=== PATIENT | female | born 1985 | race Caucasian/White ===

== ENCOUNTER 2022-09-19 18:07 | Emergency (ER) | payer BC, SELFPAY ==
[2022-09-19 18:16] VITALS: BP 131/84; PULSE 70; RESP 16; TEMP 36.2; O2SAT 99; BMI 36.9
--- NOTE | 2022-09-19 18:30 | CRLHL7_ITS ---
For Patients: As a result of the Century Cures Act, medical imaging exams and procedure reports are released immediately into your electronic medical record. You may view this report before your referring provider. If you have questions, please contact your health care provider. INDICATION: Right lower quadrant pain, history of stones. TECHNIQUE: CT abdomen and pelvis without contrast. Coronal and sagittal reformats were generated. COMPARISON: CT of the abdomen and pelvis from 08/10/2020. FINDINGS: Lower chest: Unremarkable. Liver: Decreased attenuation is compatible with steatosis. No other abnormality within limitations of lack of contrast. Gallbladder and bile ducts: Surgically absent gallbladder. Normal caliber bile ducts. Spleen: Enlarged measuring 15 cm in AP dimension. Peripherally calcified focus is stable and could be sequela of prior trauma or infection. Pancreas: Unremarkable. Adrenal glands: Unremarkable. No nodules. Kidneys and Ureters: Punctate stone in the lower pole of the right kidney measures approximately 2 mm (4/51). No left renal calculi. No hydronephrosis. Lymph Nodes and Retroperitoneum: Unremarkable. Vasculature: Unremarkable. GI tract: Unremarkable. Normal in caliber. Normal appendix. Peritoneum/Abdominal Wall: Unremarkable. No mass or infiltration. No free air or free fluid. Pelvic Viscera: Intrauterine device in the endometrial canal. Bladder: Unremarkable. Bones: Unremarkable for age. IMPRESSION: 1. Tiny right renal calculus. No hydronephrosis. 2. Normal appendix. Please note that all CT scans at this facility use dose modulation, iterative reconstruction, and/or weight-based dosing when appropriate to reduce radiation dose to as low as reasonably achievable. Dictated by Leonel Escoto MD @ 09/19/2022 7:08:54 PM (Electronically Signed)
--- NOTE | 2022-09-19 18:30 | ED.ABDPAIN ---
HPI - Abdominal Pain General Chief Complaint: Abdominal Pain Stated Complaint: Right abdominal pain (no gall bladder) Time Seen by Provider: 09/19/22 18:08 History of Present Illness HPI narrative: This 37-year-old female comes in with right upper quadrant abdominal pain over the past couple days. She states that it comes and goes but now has a constant dull ache that is minimal. Certain maneuvers or positions and occasionally a deep breath can sometimes worsen this pain. She does not report any specific injury event but states that she did fall off of a chair 3 days ago and bumped her left side into a radiator. She does also report a history of kidney stones. She does not describe any fever or dysuria symptoms. She has had her gallbladder removed years ago. Related Data Home Medications Medication Instructions Recorded Confirmed levonorgestrel 20 mcg/24 hours (8 1 intrauterine ONCE 08/11/22 08/11/22 yrs) 52 mg intrauterine device propranolol 60 mg capsule,24 mg PO DAILY 08/11/22 08/11/22 hr,extended release tizanidine 4 mg tablet 4 mg PO .PRN PRN 08/11/22 08/11/22 Previous Rx's Medication Instructions Recorded hydrochlorothiazide 25 mg tablet 50 mg PO .ud #90 tabs 06/20/22 bupropion HCl 300 mg 24 hr tablet, 300 mg PO QAM #90 tabs 07/25/22 extended release dextroamphetamine-amphetamine ER 25 mg PO QAM #30 caps 08/11/22 25 mg 24hr capsule,extend release dextroamphetamine-amphetamine ER 25 mg PO QAM #30 caps 08/11/22 25 mg 24hr capsule,extend release (Adderall XR) Allergies Allergy/AdvReac Type Severity Reaction Status Date / Time hydrocodone AdvReac Severe aggression Verified 09/19/22 16:35 hydromorphone AdvReac Severe aggression Verified 09/19/22 16:35 oxycodone AdvReac Severe aggression Verified 09/19/22 16:35 codeine AdvReac Intermediate GI upset Verified 09/19/22 16:35 Eggs or Egg-derived Products Allergy Unknown Uncoded 09/19/22 16:35 Review of Systems Status of ROS Reports: 10 or more systems reviewed and unremarkable except as noted in History and below Narrative Constitutional: No fevers, no weight gain or loss. Eyes: No discharge. No vision changes. HENT: No congestion, no sore throat, no ear pain. Cardiovascular: No chest pain, no palpitations. Respiratory: No shortness of breath, no wheezes, no cough. Gastrointestinal: No vomiting, no diarrhea. Right upper quadrant abdominal pain as described above. Genitourinary: No dysuria, no hematuria. Musculoskeletal: Normal range of motion. Skin: No rashes, no pruritis. Neurological: No dizziness, weakness, sensory change, speech change. Endo/Heme/Allergies: No bruising or bleeding. No polydipsia. Pysch: no suicidality, no anxiety, no insomnia. All other systems reviewed and are negative. [facility] Medical History (Updated 09/19/22 @ 20:28 by Camron Maddox MD) ADD (attention deficit disorder) Social History Smoking Status: Never smoker How often do you have a drink containing alcohol: never How often do you have six or more drinks on one occasion: Never AUDIT-C Alcohol total score: 0 Non-prescribed substance use: denies use Little interest or pleasure in doing things: not at all Feeling down, depressed, or hopeless: not at all service: No Exam Narrative: Exam Narrative: Constitutional: Well-developed, well-nourished, no acute distress. HEENT: Normocephalic, atraumatic. Neck: Normal range of motion. Nontender. Supple. Heart: Regular. No murmurs. Normal rate. Intact distal pulses. Lungs: Clear to auscultation. No chest discomfort. No wheezes, rhonchi, or rales. Abdomen: Normal bowel sounds. Mild tenderness in the right upper quadrant. No rebound tenderness. No flank pain. Genitalia: Deferred. Back: No midline tenderness. Normal range of motion. Extremities: Normal range of motion. No injury. Skin: Intact. No rash. Warm. No erythema or pallor. Neurologic: No altered sensation. No weakness. Alert and oriented. Psychiatric: No suicidality. No anxiety or depression. No insomnia. Nursing notes and vitals signs are reviewed. Const: Vital Signs, click to edit/add: Vital Signs - 24 hr 09/19/22 18:16 Temperature 97.1 F L Pulse Rate [Left P ulse Oximeter] 70 Respiratory Rate 16 Blood Pressure [Ri ght Upper Arm] 131/84 Pulse Oximetry 99 Oxygen Delivery Me thod Room Air Course Vital Signs Vital signs: Initial Vital Signs Temperature 97.1 F L 09/19/22 18:16 Temperature Source Temporal Artery Scan 09/19/22 18:16 Pulse Rate 70 09/19/22 18:16 Pulse Rhythm 09/19/22 18:16 Pulse Strength 3+ Normal 09/19/22 18:16 Respiratory Rate 16 09/19/22 18:16 Blood Pressure 131/84 09/19/22 18:16 Blood Pressure Mean 99 09/19/22 18:16 Blood Pressure Position Sitting 09/19/22 18:16 Pulse Oximetry 99 09/19/22 18:16 Oxygen Delivery Method 09/19/22 18:16 Vital Signs Temperature 97.1 F L 09/19/22 18:16 Pulse Rate 70 09/19/22 18:16 Respiratory Rate 16 09/19/22 18:16 Blood Pressure 131/84 09/19/22 18:16 Pulse Oximetry 99 09/19/22 18:16 Oxygen Delivery Method 09/19/22 18:16 Temperature 97.1 F L 09/19/22 18:16 Pulse Rate 70 09/19/22 18:16 Respiratory Rate 16 09/19/22 18:16 Blood Pressure 131/84 09/19/22 18:16 Pulse Oximetry 99 09/19/22 18:16 Oxygen Delivery Method 09/19/22 18:16 MDM - Abdominal Pain MDM Narrative Medical decision making narrative: This patient comes in with right-sided abdominal pain for the past few days. She does have a history of kidney stones but states this [address] scan of the abdomen and pelvis is acquired which does show evidence of a small stone in the pole of the kidney but no sign of obstructive stone, hydroureter, or hydronephrosis. Additionally her urinalysis returns with normal results and no evidence of hematuria. The patient did fall a couple days ago and landed on her left side but in doing so she did stretch the musculature on the right side of her abdomen and chest wall. This may be a trigger for her symptoms. In any event she is not showing any signs of that are worrisome and is okay to return home. She is reassured with these results and plans to use [id number] medicines as needed and directed. Lab Data Labs: Lab Results 09/19/22 Range/Units 19:20 Urine Color Yellow (Yellow) Urine Appearance Clear (Clear) Urine pH 6.0 (5.0-8.5) Ur Specific [place] 1.015 (1.000-1.030) Urine Protein Negative (Negative) Urine Glucose (UA) Negative (Negative) Urine Ketones Negative (Negative) Urine Blood Negative (Negative) Urine Nitrite Negative (Negative) Urine Bilirubin Negative (Negative) Urine Urobilinogen 0.2 (0.2-1.0) Ur Leukocyte Esterase Negative (Negative) Urine RBC 0-2 (0-2) Urine WBC 0-2 (0-5) Ur Squamous Epith Cells Few (None-Few) Urine Bacteria Few A (None) Imaging Data CT scan - abdomen: Radiologist's impression: 1. Tiny right renal calculus. No hydronephrosis. 2. Normal appendix. Discharge Plan Discharge Clinical Impression: Acute chest wall pain Patient Disposition: Home, Self-Care Condition: Stable Additional Instructions: Take [id number] medication as needed and indicated. Follow up with MD or return if worsening. Prescriptions: No Action levonorgestrel 20 mcg/24 hours (7 yrs) 52 mg intrauterine device 1 intrauterine ONCE propranolol 60 mg capsule,extended release 24 hr PO DAILY tizanidine 4 mg tablet 4 mg PO .PRN PRN dextroamphetamine-amphetamine [Adderall XR] 25 mg capsule,extended release 24hr 25 mg PO QAM Qty: 30 0RF dextroamphetamine-amphetamine 25 mg capsule,extended release 24hr 25 mg PO QAM Qty: 30 0RF hydrochlorothiazide 25 mg tablet 50 mg PO .ud Qty: 90 1RF Rx Instructions: Alternate 1 tab and 2 tabs every other day. bupropion HCl 300 mg tablet extended release 24 hr 300 mg PO QAM Qty: 90 1RF Follow Up/Referrals: Ashu Bush MD [Primary Care Provider] - Stand Alone Forms: Videdressing Info Instructions
--- OUTSIDE RECORDS SUMMARY | 2022-09-19 18:59 | XMS_ITS | Clinical Summary ---
:1985 Author Organization [facility] [place] [address] Care Team Providers Name Role Phone Ashu Bush MD Primary Care Provider Allergies Active Allergy Reactions Severity Noted Date Comments Codeine Stomach Upset, Vomiting 03/18/2009 All T3s Egg Derived *Unknown 08/23/2014 Oxycodone Rash 11/22/2017 Medications Medication Sig Dispensed Refills Start Date End Date Status Take 1 tablet by 0 12/03/2015 Ac tive vitamin-folic acid 1 mouth once daily. mg ( VITAMIN) tablet/capsule albuterol HFA 90 Inhale 2 Puffs by 0 10/10/2017 Active mcg/actuation inhaler mouth. cyclobenzaprine Take 1 tablet by 30 tablet 0 09/23/2018 Active (FLEXERIL) 10 mg mouth 2 times daily tabletIndications: if needed for Numbness and tingling Muscle Spasm. in right hand, Cervicalgia camphor-menthol Apply topically to 1 jar 0 09/23/2018 Active (TIGER BALM) 11-11 % affected area(s). ointIndications: White ointment or Numbness and tingling sports rub, up to in right hand, 5x/day as needed Cervicalgia then warm compress over. omeprazole (PRILOSEC) Take 20 mg by mouth 0 Active 20 mg Delayed-Release once daily before a capsuleIndications: meal. 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 Max tabletIndications: acetaminophen dose: S/P section 4000mg in 24 hrs. ferrous sulfate, 65 Take 1 tablet by 60 tablet 0 04/19/2020 Active mg elemental, mouth 2 times daily tabletIndications: with meals. Acute blood loss anemia Breast Pump - Electric breast 1 Device 0 04/19/2020 Active PurchaseIndications: pump for home use. S/P section Gestation age at delivery: 37 weeks. Reason for need: Desires . Length of need: 12 months ibuprofen (ADVIL; Take 1 tablet by 40 tablet 0 04/20/2020 Active MOTRIN) 600 mg mouth every 6 tabletIndications: hours. Maximum of S/P section 3200 mg in 24 hours. sennosides-docusate, Take 1 tablet by 60 tablet 1 04/20/2020 Active 8.6-50 mg, (SENOKOT mouth 2 times S) 8.6-50 mg daily. tabletIndications: S/P section ferrous sulfate, 65 Take 1 tablet by 60 tablet 1 04/20/2020 Active mg elemental, mouth once daily tabletIndications: with a meal. S/P section, Acute blood loss anemia NIFEdipine (PROCARDIA Take 1 tablet by 30 tablet 1 04/21/2020 Active XL) 30 mg mouth once daily Extended-Release before a meal. tabletIndications: S/P section, Preeclampsia, severe, third trimester Active Problems Problem Noted Date S/P section 11/25/2017 Preeclampsia, severe, third trimester 11/24/2017 36 weeks gestation of 11/24/2017 Respiratory infection, upper 10/22/2017 Female infertility 08/30/2016 Obesity, Class II, BMI 35-39.9 08/30/2016 Hyperlipidemia, unspecified 08/30/2016 Melanoma Overview: left arm, age 25, 2 lesions Immunizations Name Administration Dates Next Due Tdap 10/04/2017, 09/27/2015 Family History Medical History Relation Name Comments Cancer Father basal cell Hypertension Father Diabetes Maternal Grandfather Diabetes Mother Hypertension Mother Cancer-breast Other either paternal aunt or grandmother Cancer Paternal Grandfather ? origin, h ad mets to lungs Cancer-colon No Family History Cancer-ovarian No Family History Relation Name Status Comments Father Maternal Grandfather Mother Other Paternal Grandfather Social History Tobacco Use Types Packs/Day Years Used Date Never Smoker Smokeless Tobacco: Never Used Tobacco Cessation: Counseling Given: Yes Alcohol Use Standard Drinks/Week Comments No 0 (1 standard drink = 0.6 oz pure alcoho l) Sex Assigned at Date Recorded Not on file Obstetrics History Para Term AB IAB SAB Ectopic Multiple Living Live Births 2 2 1 1 0 0 0 0 0 1 1 Date Outcome GA Total Labor/2nd/3rd Weight Sex Delivery Anes PTL Mirian A 1 A5 Name Clin Labor 11/25 36w 3.11 kg F Epidu Maria E 8 3d (6 lb ral ng 13.7 oz) Complications: Failure to Progress in Fi rst Stage 04/18/2020 Term 37w0d 0h 3.29 F CS-LTranv Spinal [address] 03m kg (7 Gary blet lb 4 oz) Delivery Location: [facility]) Last Filed Vital Signs Vital Sign Reading Time Taken Comments Blood Pressure 132/72 04/21/2020 8:30 AM CDT Pulse 97 04/21/2020 8:30 AM CDT Temperature 36.7 ??C (98.1 ??F) 04/21/2020 7:35 AM CDT Respiratory Rate 18 04/21/2020 7:35 AM CDT Oxygen Saturation 98% 04/19/2020 11:20 PM CDT Inhaled Oxygen Concentration - - Weight 118.3 kg (260 lb 11.2 oz) 04/21/2020 2:00 AM CDT Height 172.7 cm (5' 8) 04/18/2020 7:42 PM CDT Body Mass Index 39.64 04/18/2020 7:42 PM CDT Plan of Treatment Health Maintenance Due Date Last Done Comments COVID-19 vaccine series (#1) 1985 BMI (ht and wt on same day) for 09/23/2019 09/23/2018, 08/27, age 18+ 04/17/2017, Additional history exists Depression screening for age 12+ 10/04/2019 10/04/2018, , 09/23/2018, Additional history exists Pap test for age 21-65 09/30/2022 09/30/2019, 09/30/2019, 09/03/2015 (Completed outside of [facility]) Tetanus booster 10/04/2027 10/04/2017, 09/27/2015 Tdap Completed 10/04/2017, 09/27/2015 Hepatitis C screening for age Completed 02/14/2020 18-79 Results Not on filefrom Last 3 Months Insurance Payer Benefit Plan / Subscriber ID Effective Dates Phone Addre ss Type Group WC WORKERS COMP WC OWCP [id number] 2020-Presen [address] [place] [address] [employer] [place] [id number] 2018-Present [address] [id number] [place] [address] [place] [id number] 2014-[place] [address] [id number] [place] [address] [employer] Personal/Family Self 1985 [address] [facility] [phone] [place] ([place] [id number] [employer] Workers Comp Self 1985 [address] [facility] [phone] [place] (Work) [id number] [employer] Workers Comp Self 1985 [address] [facility] [phone] [place] ([place]) [id number] Advance Directives Latest Code Status on File Code Status Date Activated Date Inactivated Comments Full Code 04/18/2020 7:53 PM 04/21/2020 12:37 PM Code Status Discussion: Discussed Full Code 03/29/2020 2:20 PM 03/29/2020 6:29 PM Full Code 11/25/2017 6:03 PM 11/29/2017 7:49 PM Code Status Discussion: Not Discussed Full Code 11/25/2017 4:41 PM 11/25/2017 6:03 PM Code Status Discussion: Not Discussed Full Code 11/25/2017 1:35 PM 11/25/2017 4:33 PM Code Status Discussion: Not Discussed Care Teams Auto Travel Counselor Relationship Specialty Start Date End Date Ashu Bush MD PCP - General Family Practice 01/09/[address] [place] [id number]
[2022-09-19 19:29] LABS: Appearance Urine Clear (Clear); Bilirubin Urine Negative (Negative); Blood Urine Negative (Negative); Color Urine Yellow (Yellow); Glucose Urine Negative (Negative); Ketones Urine Negative (Negative); Leukocyte Esterase Urine Negative (Negative); Nitrite Urine Negative (Negative); Protein Urine Negative (Negative); Specific Gravity Urine 1.015 (1.000-1.030); Urobilinogen Urine 0.2 (0.2-1.0)
[2022-09-19 20:06] LABS: Bacteria Urine Few; RBC Urine 0-2 (0-2); Squamous Epithelial Cell Urine Few (None-Few); WBC Urine 0-2 (0-5)
== END 2022-09-19 20:37 | disposition home or self-care (01) ==
PROVIDERS: Emergency Provider Emergency Medicine Emergency Medical Services; PCP Family Medicine
DX: R07.89 Other chest pain (principal)
CPT/HCPCS: 74176; 81001; 87086; 99284

== ENCOUNTER 2022-11-06 15:42 | Outpatient (CLI) | payer BC, SELFPAY ==
[2022-11-06 17:21] LABS: Chloride* 100 mmol/L (96-114)
[2022-11-06 17:22] LABS: Potassium* 3.8 mmol/L (3.6-5.1); Sodium* 139 mmol/L (135-149)
[2022-11-06 17:24] LABS: Cholesterol* 277 mg/dL (90-199); Creatinine* 0.6 mg/dL (0.5-1.5); Estimated Glomerular Filt Rate 118 ml/min
[2022-11-06 17:25] LABS: Blood Urea Nitrogen* 15 mg/dL (5-24); Calcium* 9.7 mg/dL (8.4-10.6); Carbon Dioxide* 29 mmol/L (20-32); Glucose* 101 mg/dL (60-115); Triglycerides* 169 mg/dL (40-149)
[2022-11-06 17:26] LABS: HDL Cholesterol* 44 mg/dL (>=50); LDL Cholesterol Calculated 199 mg/dL (<100)
== END 2022-11-06 15:43 | disposition home or self-care (01) ==
LOC: LONREF 15:43
PROVIDERS: PCP Family Medicine; Visit Provider Family Medicine
DX: E78.00 Pure hypercholesterolemia, unspecified (principal); I10 Essential (primary) hypertension
CPT/HCPCS: 80048; 80061

== ENCOUNTER 2023-01-25 10:33 | Emergency (ER) | payer BC, SELFPAY ==
[2023-01-25 10:52] VITALS: BP 139/90; PULSE 86; RESP 20; TEMP 36.2; O2SAT 98; BMI 39.5
--- NOTE | 2023-01-25 12:07 | ED_ITS ---
HPI - General Adult General Chief complaint: Headache/Migraine Stated complaint: high bp, headache Time Seen by Provider: 01/25/23 11:07 History of Present Illness HPI narrative: This 37-year-old female comes in stating that her blood pressure is elevated and is causing her to have a headache. She is taking antihypertensive meds and arrives with a blood pressure at 139/90. At the time of my visit her blood pressure was 131/85. She states that she feels fine. She attempted to get in to her primary physician but was unable to do so so she came here hoping to better manage her blood pressure. Related Data Home Medications Medication Instructions Recorded Confirmed levonorgestrel 21 mcg/24 hours (8 1 intrauterine ONCE 08/11/22 08/11/22 yrs) 52 mg intrauterine device propranolol 60 mg capsule,24 mg PO DAILY 08/11/22 08/11/22 hr,extended release tizanidine 4 mg tablet 4 mg PO .PRN PRN 08/11/22 08/11/22 Previous Rx's Medication Instructions Recorded bupropion HCl 300 mg 24 hr tablet, 300 mg PO QAM #90 tabs 07/25/22 extended release hydrochlorothiazide 25 mg tablet 50 mg PO .ud #135 tabs 10/26/22 rosuvastatin 10 mg tablet 10 mg PO QDAY #90 tabs 11/23/22 dextroamphetamine-amphetamine ER 25 mg PO QAM #30 caps 11/25/22 25 mg 24hr capsule,extend release dextroamphetamine-amphetamine ER 25 mg PO QAM #30 caps 11/25/22 25 mg 24hr capsule,extend release (Adderall XR) dextroamphetamine-amphetamine ER 25 mg PO QAM #30 caps 12/28/22 25 mg 24hr capsule,extend release (Adderall XR) Allergies Allergy/AdvReac Type Severity Reaction Status Date / Time hydrocodone AdvReac Severe aggression Verified 01/25/23 10:52 hydromorphone AdvReac Severe aggression Verified 01/25/23 10:52 oxycodone AdvReac Severe aggression Verified 01/25/23 10:52 codeine AdvReac Intermediate GI upset Verified 01/25/23 10:52 Eggs or Egg-derived Products Allergy Unknown Uncoded 09/19/22 16:35 Review of Systems Status of ROS: Reports: 10 or more systems reviewed and unremarkable except as noted in History and below Narrative: Constitutional: No fevers, no weight gain or loss. Eyes: No discharge. No vision changes. HENT: No congestion, no sore throat, no ear pain. Cardiovascular: No chest pain, no palpitations. Respiratory: No shortness of breath, no wheezes, no cough. Gastrointestinal: No abdominal pain, no vomiting, no diarrhea. Genitourinary: No dysuria, no hematuria. Musculoskeletal: Normal range of motion. Skin: No rashes, no pruritis. Neurological: No dizziness, weakness, sensory change, speech change. Endo/Heme/Allergies: No bruising or bleeding. No polydipsia. Pysch: no suicidality, no anxiety, no insomnia. All other systems reviewed and are negative. [facility] Medical History (Updated 01/25/23 @ 12:12 by Camron Maddox MD) ADD (attention deficit disorder) Social History Smoking Status: Never smoker How often do you have a drink containing alcohol: never How often do you have six or more drinks on one occasion: Never AUDIT-C Alcohol total score: 0 Non-prescribed substance use: denies use Little interest or pleasure in doing things: not at all Feeling down, depressed, or hopeless: not at all service: No Exam Narrative: Exam Narrative: Constitutional: Well-developed, well-nourished, no acute distress. HEENT: Normocephalic, atraumatic. Neck: Normal range of motion. Nontender. Supple. Heart: Intact distal pulses. Lungs: No chest discomfort. No wheezes, rhonchi, or rales. Abdomen: Nontender. Back: Normal range of motion. Extremities: Normal range of motion. No injury. Skin: Intact. No rash. Warm. No erythema or pallor. Neurologic: No altered sensation. No weakness. Alert and oriented. Psychiatric: No suicidality. No anxiety or depression. No insomnia. Nursing notes and vitals signs are reviewed. Const: Vital Signs, click to edit/add: Vital Signs - 24 hr 01/25/23 10:52 Temperature 97.2 F L Pulse Rate [Pulse Oximeter] 86 Respiratory Rate 20 Blood Pressure [Ri ght Upper Arm] 139/90 H Pulse Oximetry 98 Oxygen Delivery Me thod Room Air Course Vital Signs Vital signs: Initial Vital Signs Temperature 97.2 F L 01/25/23 10:52 Temperature Source Temporal Artery Scan 01/25/23 10:52 Pulse Rate 86 01/25/23 10:52 Pulse Rhythm 01/25/23 10:52 Respiratory Rate 20 01/25/23 10:52 Blood Pressure 139/90 H 01/25/23 10:52 Blood Pressure Mean 106 01/25/23 10:52 Blood Pressure Position Sitting 01/25/23 10:52 Pulse Oximetry 98 01/25/23 10:52 Oxygen Delivery Method 01/25/23 10:52 Vital Signs Temperature 97.2 F L 01/25/23 10:52 Pulse Rate 86 01/25/23 10:52 Respiratory Rate 20 01/25/23 10:52 Blood Pressure 139/90 H 01/25/23 10:52 Pulse Oximetry 98 01/25/23 10:52 Oxygen Delivery Method 01/25/23 10:52 Temperature 97.2 F L 01/25/23 10:52 Pulse Rate 86 01/25/23 10:52 Respiratory Rate 20 01/25/23 10:52 Blood Pressure 139/90 H 01/25/23 10:52 Pulse Oximetry 98 01/25/23 10:52 Oxygen Delivery Method 01/25/23 10:52 Medical Decision Making MDM Narrative Medical decision making narrative: This patient comes in stating that her elevated blood pressure causes her to have a headache. She states that every time she feels a headache she checks her blood pressure and it is elevated. I pointed out that it is actually the headache that is causing the increased blood pressure rather than the blood pressure causing her headache. She was not willing to except this perspective. She grew rather frustrated and wanted to leave. I stated that it is not worth arguing over this issue and asked her how I could help her. She wanted better management of her blood pressure. Her blood pressure currently is in the normal range at 131/85. I stated that we do not typically manage blood pressure out of the emergency department unless it is elevated significantly and not returning to a lower level over time or if a person is having neurologic symptoms typical of a hypertensive emergency. She continued to be dissatisfied with this perspective. She did agree to a oral dose of clonidine 0.1 mg. This should not bring her blood pressure too low and 1 dose should not have a rebound effect. I advised her to follow-up with her primary physician for ongoing management of Discharge Plan Discharge Clinical Impression: Hypertension Patient Disposition: Home, Self-Care Condition: Stable Additional Instructions: Continue current plans. Follow up with primary physician for ongoing management of blood pressure. It is helpful to bring in recorded blood pressure readings to assist in this process. Prescriptions: No Action levonorgestrel 20 mcg/24 hours (7 yrs) 52 mg intrauterine device 1 intrauterine ONCE propranolol 60 mg capsule,extended release 24 hr PO DAILY tizanidine 4 mg tablet 4 mg PO .PRN PRN bupropion HCl 300 mg tablet extended release 24 hr 300 mg PO QAM Qty: 90 1RF hydrochlorothiazide 25 mg tablet 50 mg PO .ud Qty: 135 1RF Rx Instructions: Alternate 1 tab and 2 tabs every other day. rosuvastatin 10 mg tablet 10 mg PO QDAY Qty: 90 1RF dextroamphetamine-amphetamine [Adderall XR] 25 mg capsule,extended release 24hr 25 mg PO QAM Qty: 30 0RF Rx Instructions: fill date 01/23/23 dextroamphetamine-amphetamine 25 mg capsule,extended release 24hr 25 mg PO QAM Qty: 30 0RF dextroamphetamine-amphetamine [Adderall XR] 25 mg capsule,extended release 24hr 25 mg PO QAM Qty: 30 0RF Follow Up/Referrals: Ashu Bush MD [Primary Care Provider] - Stand Alone Forms: Corpora Info Instructions
--- NOTE | 2023-01-25 12:22 | ED.NURSE ---
Pt declines ordered med. Pharmacy notified. Pt declines signing discharge signature page, but does leave ED with paperwork in hand.
[2023-01-25 12:24] VITALS: BP 139/90; PULSE 86; RESP 20; TEMP 36.2
== END 2023-01-25 12:24 | disposition home or self-care (01) ==
PROVIDERS: Emergency Provider Emergency Medicine Emergency Medical Services; PCP Family Medicine
DX: I10 Essential (primary) hypertension (principal)
CPT/HCPCS: 99283; 99284

== ENCOUNTER 2023-03-10 09:33 | Outpatient (CLI) | payer BC, SELFPAY | END 2023-03-10 09:34 | disposition home or self-care (01) | LOC: NFLDREF 03-11 05:34 | PROVIDERS: PCP Family Medicine; Referring Provider Family Medicine; Visit Provider Family Medicine | DX: E78.00 Pure hypercholesterolemia, unspecified (principal); E87.6 Hypokalemia; I10 Essential (primary) hypertension | CPT/HCPCS: 80053; 80061; 82670; 83001; 83615; 84144 ==

== ENCOUNTER 2023-06-08 15:01 | Outpatient (CLI) | payer BC, SELFPAY | END 2023-06-08 15:02 | disposition home or self-care (01) | PROVIDERS: PCP Family Medicine; Visit Provider Family Medicine | DX: E66.9 Obesity, unspecified (principal); E78.00 Pure hypercholesterolemia, unspecified; E87.6 Hypokalemia; I10 Essential (primary) hypertension; F98.8 Other specified behavioral and emotional disorders with onset usually occurring in childhood and adolescence | CPT/HCPCS: 80053; 84443 ==

== ENCOUNTER 2024-02-29 19:43 | Outpatient (CLI) | payer BC, SELFPAY ==
--- OUTSIDE RECORDS SUMMARY | 2024-02-29 19:46 | XMS_ITS | Data Portability ---
Author Name Unknown Address [address] [place] [address] Phone [phone] Organization [facility], [facility] Address [address] [place] [address] Assessment No assessment recorded. Plan of Treatment Reminders Order Date Submit Date Provider Last Modified By Organization Details Last Modified Time Details Appointments None recorded. Lab None recorded. Referral None recorded. Procedures None recorded. Surgeries ureterosco py with stone basket extraction , holmium laser fragmentat ion (SURG) 2019 020 [email or web address] Not available 0 14:04:25 Imaging None recorded. Medication Orders oxybutynin chloride 5 mg tablet 2019 020 INTERFACE [facility] [address] [place] [address], [id number], 0 10:26:03 Patient TargetsNo targets recorded. Patient InstructionsNo instructions recorded. Reason for Referral None Reported. Results Created Date Observation Date Name Description Value Unit Range Abnormal Flag LastModifiedBy Organization Detail LastModifiedTime 06/30/20 20 06/22/2020 CT, abdom en, w/ contr ast No observ ation record ed. [email or web address] Not Available 07/01/2020 08:53:50 Result Notes None recorded. Procedures Surgical History Date Name Laterality Status Provider Name and Address Organization Details Recorded Time Cholecystectomy completed Jamilah ruth [facility] 06/30/2020 09:55:32 removal of ovarian cyst completed Jamilah ruth [facility] 06/30/2020 09:55:49 Imaging Results Imaging Date Name Status LastModified by Organiz ation Details LastModified Time 06/22/2020 CT, abdomen, w/ contrast completed bigg Information not available 07/01/2020 08:53:50 Procedure Notes None recorded. Medical Equipment None Reported. Allergies Allergen ID Allergen Name Allergen Category Reaction Reaction Severity Criticality Documentation Date Start Date Code Code System Note Provider Name and Address Organization Details Recorded Time 729910 codeine medicatio n rash Not available Not available 06/30/2020 2670 RxNorm Jamilah RamachandranKARINA kirkland [facility] 0 09:53:45 Medications Name Sig Start Date Stop Date Status Note LastModified by Organization Details LastModified Time oxybutynin chloride 5 mg tablet Take 1 tablet twice a day by oral route. 020 active Not Available Not Available Not Avai lable Keflex active Not Available Not Availa ble Not Available Vitals Date Recorded Body height Body mass index (BMI) Body weight Provider Name and Address Organization Details Last Updated DateTime 06/30/2020 173.99 cm 36.7 kg/m2 012511.13 g Jamilah RamachandranKARINA kirkland [facility] 06/30/2020 09:52:56 Social History Question Answer Notes LastModified by Organizat ion Details LastModified Time Tobacco Smoking Status Never Smoker Jamilah RamachandranKARINA kirkland [facility] 06/30/2020 09:55:10 Do You Or Have You Ever Used E-cigarettes Or Vape? Never Used Electronic Cigarettes [email or web address] Information not available 06/30/2020 Sex: Female Functional Status None recorded. Mental Status None recorded. Family History Relationship Description Onset Age of this Age Resolved Age Notes Maternal Grandmother Family history of cancer Medical History Condition Response Diabetes N Sexually Transmitted Infection N Bleeding Disorder N High Blood Pressure Y Kidney Stones Y Cancer Y Lung Disease N Depression N High Cholesterol Y GERD/Acid Reflux N Heart Disease N Gynecological HistoryNo gynecological history recorded. Obstetrics History GPAL:G 0 P 0 0 0 0 Past Encounters Encounter ID Performer Location Encounter Start Date Encounter Closed Date Diagnosis/Indication Diagnosis SNOMED-CT Code [id number] Oneal Catalan MD [facility] [address] [place] [id number] 06/30/2020 09:46:53 06/30/2020 11:53:58 Ureteric stone 64599022 Health Concerns Section Related Observation LastModified by Organization Detai ls LastModified Time None Recorded Concern Status LastModified by Organization Details LastModified Time None Recorded Advance Directives Directive None Recorded Payers Encounter Date Sequence Insurance Name Policy Number Policy Guerrero Covered Member ID Guerrero Member ID Guarantor Name 06/30/2020 1 [id number] Gaviota Gill [id number] Gaviota Gill Notes Date Note Type Note Provider Name and Address Organization Details Recorded Time 06/30/2020 text/html HPI Notes: Sen a t the ER ([facility]) last week for flank pain now with urgency/no dysuria/ frequency/no gross hematuria. CT showed left proximal stone 4 by 6 mm with hydro 07/22/20. Last night she started keflex for OAB but no gross hematuria, no pain with urination. NO fevers. This visit was conducted by telephone due to the COVID-19 crisis. Prior to conducting our telephone visit, the patient was apprised of the risks, benefits and alternatives to telephone visits including but not limited to poor audio quality, interrupted visits due to technological limitations, delays in medical evaluation and treatment due to deficiencies or failures of equipment, failure of security protocols resulting in a breach of privacy of personal medical information and a lack of access to complete medical records resulting in not fully informed decisions. Also, because of the COVID-19 pandemic, it was not possible for the patient to sign the privacy regulations, HIPAA release and assignment of benefits forms. The patient was given the opportunity to ask questions about these policies and gave verbal acknowledgement and approval of these policies as well as to hold this meeting by telephone. Lastly, the patient agreed to allowing their medication history to be pulled from a national pharmacy database to facilitate and coordinate their care. Oneal Catalan MD [address] [place] [address],[address], [place], [address], [facility] 06/30/2020 10:42:44 OBGyn Episode No OBEpisode recorded.
--- OUTSIDE RECORDS SUMMARY | 2024-02-29 19:47 | XMS_ITS | Clinical Summary ---
Author Name Unknown Organization [facility] Address [place], [place] [address] Care Team Providers Care Profile Shaper Operator Name Role Phone Ashu Bush MD Primary Care Provider [phone] Allergies Active Allergy Reactions Criticality Noted Date Comments Codeine Stomach Upset,Vomiting,Hematemesis 0 04/09/2008 All T3s Egg Derived *Unknown 08/23/2014 Oxycodone Rash 11/22/2017 Medications Medication Sig Dispensed Refills Start Date End Date Status buPROPion (WELLBUTRIN XL) 300 mg Extended-Release tablet TAKE 1 TABLET (300MG) BY MOUTH DAILY IN THE MORNING 07/25/2022 Active dextroamphetamine-amph etamine (ADDERALL XR) 25 mg Extended-Release capsule Take 25 mg by mouth. 09/25/2022 Active hydroCHLOROthiazide (HCTZ) 25 mg tablet ALTERNATE TAKING ONE TABLET BY MOUTH DAILY AND TWO TABLETS DAILY EVERY OTHER DAY 08/14/2022 Active propranolol ER (INDERAL LA) 60 mg Cs24 Sustained-Release capsule Take 60 mg by mouth once daily. 07/17/2022 Active amLODIPine (NORVASC) 2.5 mg tablet Take 2.5 mg by mouth once daily. 02/06/2023 Active guanFACINE (TENEX) 1 mg tablet Take 1 mg by mouth at bedtime. 02/01/2023 Active potassium chloride (KLOR-CON M20) 20 mEq Extended-Release tablet Take 20 mEq by mouth. 02/01/2023 Active rosuvastatin (CRESTOR) 10 mg tablet Take 10 mg by mouth once daily. 11/23/2022 Active ondansetron (ZOFRAN ODT) 4 mg disintegrating tabletIndications:Cristian ea Place 1 Tablet (4 mg) on the tongue every 8 hours if needed for Nausea/Vomiting. 15 Tablet 02/20/2023 Active Active Problems Problem Noted Date Diagnosed Date S/P section 11/25/2017 Preeclampsia, severe, third trimester 11/24/2017 36 weeks gestation of 11/24/2017 Respiratory infection, upper 10/22/2017 Female infertility 08/30/2016 Obesity, Class II, BMI 35-39.9 08/30/2016 Hyperlipidemia, unspecified 08/30/2016 Melanoma Overview: left arm, age 25, 2 lesions Immunizations Name Administration Dates Next Due Tdap 10/04/2017,09/27/2015 Family History Medical History Relation Name Comments Cancer Father basal cell Hypertension Father Diabetes Maternal Grandfather Diabetes Mother Hypertension Mother Cancer-breast Other either paterna l aunt or grandmother Cancer Paternal Grandfather ? origi n, had mets to lungs Cancer-colon No Family History Cancer-ovarian No Family History Relation Name Status Comments Father Maternal Grandfather Mother Other Paternal Grandfather Social History Tobacco Use Types Packs/Day Years Used Date Smoking Tobacco: Never Smokeless Tobacco: Never Tobacco Cessation:Counseling Given: Yes Alcohol Use Standard Drinks/Week Comments No 0 (1 standard drink = 0.6 oz pur e alcohol) PHQ-2 Answer Date Recorded PHQ-2 Score 0 01/28/2019 Sex and Gender Information Value Date Recorded Sex Assigned at Not on file Gender Identity Not on file Sexual Orientation Not on file Obstetrics History Para Term AB IAB SAB Ectopic Multiple Livin g Live Births 2 2 1 1 0 0 0 0 0 1 1 Date Outcome GA Total Labor Labor/2nd/3rd Weight Sex Delivery Anes PTL Mirian A1 A5 Name Cl in 11/25 36w 3d 3.11 kg (6 lb 13.7 oz) F Epidu ral Maria E ng 8 9 Complications:Failure to Pro kaylin in First Stage 04/18 Term 37w 0d 0h 03m 3.29 kg (7 lb 4 oz) F CS-LTranv Spina l 8 9 AGRIM SON,B GWHIT KARENA Dr. Bramb let Delivery Location:[facility] Last Filed Vital Signs Vital Sign Reading Time Taken Comments Blood Pressure 125/85 02/20/2023 10:45 AM CDT Pulse 84 02/20/2023 10:45 AM CDT Temperature 36.2 ??C (97.2 ??F) 02/20/2023 10:45 AM C DT Respiratory Rate 14 02/20/2023 10:45 AM CDT Oxygen Saturation 98% 02/20/2023 10:45 AM CDT Inhaled Oxygen Concentration - - Weight 117.9 kg (260 lb) 02/20/2023 10:45 AM CDT Height 174 cm (5' 8.5) 02/20/2023 10:45 AM CDT Body Mass Index 38.96 02/20/2023 10:45 AM CDT Plan of Treatment Health Maintenance Due Date Last Done Comments HIV for age 15-65 1999 BMI (ht and wt on same day) for age 18+ 09/23/2019 09/23/2018, 09/23/2018, 04/17/2017, Additional history exists Depression screening for age 12+ 10/04/2019 10/04/2018, 09/23/2018, 09/23/2018, Additional history exists Pap test for age 21-65 09/30/2022 , 09/30/2019, 09/03/2015 ([facility] COVID-19 vaccine series (2022- season) 2023 03/02/2021 Tetanus booster 10/04/2027 10/04/2017, 09/27/2015 Tdap Completed 10/04/2017, 09/27/2015 Hepatitis C screening for age 18-79 Completed 02/14/2020 Pneumococcal series for age 6-64 Aged Out No longer eligible based on patient's age to complete this topic Procedures Procedure Name Priority Date/Time Associated Diagnosis Comments ANTI HCV MARY ELLEN 02/14/2020 2:02 PM CDT [employer] PROGRAM ASSOCIATE THIN PREP PAP SCREEN IMAGED Routine 09/30/2019 9:00 AM TRUCK ENGINE TECHNICIAN from Last 3 Months or Most Recently Relevant to Health Maintenance Results * ANTI HCV (02/14/2020 2:02 PM CDT) [facility] HEPATITIS C ANTIBODY Non-React cyrus Non-React cyrus 02/15/2020 1:08 PM CDT [facility] Comment:Antibodies to HCV no t detected; does not exclude the possibility of exposure to HCV. Blood BLOOD SPECIMEN / Unknown Extra Tube / Unknown 02/14/2020 2:02 PM CDT 02/14/2020 2:59 PM CDT Chrissie Triplett MD SEND OUTS [facility] [address] [place] [address], * (ABNORMAL) [employer] PROGRAM ASSOCIATE THIN PREP PAP SCREEN IMAGED (09/30/2019 9:00 AM TRUCK ENGINE TECHNICIAN) [facility] Case Report Gynecologic Cytology Report ? Case: [id number] ? Authorizing Provider: ??Ethel Black PA-C ?Collected: ? 09/30/2019 0900 ? Ordering Location: ? [facility] ?Received: ?10/02/2019 1224 ? First Screen: ?[place] ? Pathologist: ? Isamar Atkins, ? Specimen: ?[employer] PRO[employer] ASSOCIATE ThinPrep Vial Screening, Cervical/Vaginal ? 10/15/2019 9:07 AM [facility] INTERPRETATION/ RESULT ATYPICAL SQUAMOUS CELLS OF UNDETERMINED SIGNIFICANCE (ASCUS)(A) (none) 10/15/2019 9:07 AM [facility] NISM(S) Fungal organisms morphologically consistent with Estefania species 10/15/2019 9:07 AM [facility] SPECIMEN ADEQUACY Satisfactory for evaluation No endocervical component seen 10/15/2019 9:07 AM [facility] LAB[facility]AT[facility] HPV REQUEST HPV and PAP 10/15/2019 9:07 AM [facility] Date of LMP 08/03/2019 10/15/2019 9:07 AM [facility] Last Pap Date 10/15/2019 9:07 AM [facility] Comment:unsure Abnormal Pap or Dunlo Bx in last 5 years 10/15/2019 9:07 AM [facility] Comment:2010; neg Menstrual Status 10/15/2019 9:07 AM [facility] Automated Review Successful 10/15/2019 9:07 AM [facility] Comment:Specimen processed s uccessfully by automated boring machine operator device, ThinPrep Imaging System, [employer] ANCILLARY TESTING [employer] PROGRAM [employer]OCIATE HPV Ordered, Please see separate report 10/15/2019 9:07 AM [facility] Note The pap test is a screening technique, not a diagnostic procedure. ??It is used primarily to screen for squamous cancers and precursor lesions. ??Published studies have shown that it is subject to both false negative and false positive results. ??The pap test should not be used as the sole means to diagnose or exclude pre-malignant and malignant lesions. Cytology is screened and interpreted at [facility] - [address], [place] [address] and [facility] - [address]; [place] [address] and [facility] - [address]; [place] [address] and [facility] [address]; [place] [address] 10/15/2019 9:07 AM TRUCK ENGINE TECHNICIAN [facility] ENTRAL LABORATORY Other (Cervical/Vagina l) 09/30/2019 9:00 AM TRUCK ENGINE TECHNICIAN 10/02/2019 12:24 PM TRUCK ENGINE TECHNICIAN February Sofia BRADFORD PATHOLOGY/CYTOLOGY [facility] [address] [place] [address], [place] from Last 3 Months or Most Recently Relevant to Health Maintenance Advance Directives * Full Code (Latest Code Status on File) Date Activated Date Inactivated Comments 04/18/2020 7:53 PM 04/21/2020 12:37 PM Question Answer Comments Code Status Discussion: Discussed * Full Code Date Activated Date Inactivated Comments 03/29/2020 2:20 PM 03/29/2020 6:29 PM * Full Code Date Activated Date Inactivated Comments 11/25/2017 6:03 PM 11/29/2017 7:49 PM Question Answer Comments Code Status Discussion: Not Discussed * Full Code Date Activated Date Inactivated Comments 11/25/2017 4:41 PM 11/25/2017 6:03 PM Question Answer Comments Code Status Discussion: Not Discussed * Full Code Date Activated Date Inactivated Comments 11/25/2017 1:35 PM 11/25/2017 4:33 PM Question Answer Comments Code Status Discussion: Not Discussed Care Teams Profile Shaper Operator Relationship Specialty Start Date End Date Ashu Bush MD [address] [place] [address] PCP - General Family Practice 01/09/20
--- NOTE | 2024-03-18 08:55 | W.PM.SLEEP ---
Sleep Study Details Details Interpreting Provider: Lei Date of Sleep Study: 02/29/24 Sleep Study Details: STUDY TYPE:? Home unattended ? BMI:? 39.8 ORDERING PROVIDER:? Rachelle INDICATION:? Concerns about sleep apnea ? SLEEP SUMMARY:? 509 minutes monitored RESPIRATORY SUMMARY:? AHI 16, supine 25.5, right lateral 7.4, left lateral 1.4 Low oxygen 77 5.5% of study oxygen less than 90% Snoring 82.9% PERIODIC LIMB MOVEMENTS OF SLEEP:? Not recorded during home study CARDIAC:? Range 74-113, mean 93.3 IMPRESSION:? Moderate obstructive sleep apnea much worse in the supine position RECOMMENDATION: Treatment options include weight loss, CPAP, dental appliance and/or airway expansion surgery.
== END 2024-02-29 19:44 | disposition home or self-care (01) ==
PROVIDERS: PCP Family Medicine; Visit Provider Family Medicine
DX: G47.33 Obstructive sleep apnea (adult) (pediatric) (principal)
CPT/HCPCS: 95806

== ENCOUNTER 2024-06-19 09:15 | Outpatient (CLI) | payer BC, SELFPAY ==
--- OUTSIDE RECORDS SUMMARY | 2024-06-20 10:23 | XMS_ITS | Clinical Summary ---
Author Organization [facility] Address [place], [place] [address] Care Team Providers Care Baseball Sewer Hand Name Role Phone Ashu Bush MD Primary Care Provider [phone] Allergies Active Allergy Reactions Criticality Noted Date Comments Codeine Stomach Upset,Vomiting,Hematemesis 0 04/09/2008 All T3s Egg Derived *Unknown 08/23/2014 Oxycodone Rash 11/22/2017 Medications Medication Sig Dispensed Refills Start Date End Date Status buPROPion (WELLBUTRIN XL) 300 mg Extended-Release tablet TAKE 1 TABLET (300MG) BY MOUTH DAILY IN THE MORNING 07/25/2022 Active dextroamphetamine-am phetamine (ADDERALL XR) 25 mg Extended-Release capsule Take [...] mg by mouth once daily. 11/23/2022 Active Wegovy 0.5 mg/0.5 mL pen Inject 0.5 mg subcutaneous once weekly. 04/16/2024 Active ondansetron (ZOFRAN ODT) 4 mg disintegrating tabletIndications:Na usea and vomiting, unspecified vomiting type Place 2 Tablets (8 mg) on the tongue two times daily. 12 Tablet 05/03/2024 Active Active Problems Problem Noted Date Diagnosed Date S/P section 11/25/2017 Preeclampsia, severe, third trimester 11/24/2017 36 weeks gestation of 11/24/2017 Respiratory infection, upper 10/22/2017 Female infertility 08/30/2016 Obesity, Class II, BMI 35-39.9 08/30/2016 Hyperlipidemia, unspecified 08/30/2016 Melanoma Overview: left arm, age 25, 2 lesions Encounters Date Type Department Care Team Description 05/03/2024 1:38 AM CDT - 05/03/2024 3:48 AM CDT Emergency [address] [address] Swathi Edwards MD Nausea and vomiting, unspecified vomiting type (Primary Dx); Diarrhea, unspecified type; Medication side effect; Vomiting, unspecified vomiting type, unspecified whether nausea present Discharge Disposition: Home Self Care 05/03/2024 Travel 04/30/2024 1:42 PM CDT - 04/30/2024 1:43 PM CDT Emergency [address] [address] Discharge Disposition: Against Medical Advice or Discontinued Care 04/30/2024 Travel 04/28/2024 8:44 AM CDT - 04/28/2024 12:17 PM CDT [address] [address] Federico Nye MD Vomiting, unspecified vomiting type, unspecified whether nausea present (Primary Dx); Diarrhea, unspecified type; Abdominal pain, unspecified abdominal location Discharge Disposition: Home Self Care 04/28/2024 Travel from Last 3 Months Immunizations Name Administration Dates Next Due Tdap [...] Outcome GA Total Labor Labor/2nd/3rd Weight Sex Type Anes PTL Mirian A1 A5 Name Clin 2016 36w 3d 3.11 kg (6 lb 13.7 oz) F C-Sec tion Epidur al Livin g 8 9 Complications:Failure to Pro kaylin in First Stage 2019 Term 37w 0d 0h 03m 3.29 kg (7 lb 4 oz) F CS-LT ranv Spinal 8 9 AGRIM SON,B RAMESH Nick et Delivery Location:[facility]) Last Filed Vital Signs Vital Sign Reading Time Taken Comments Blood Pressure 122/91 05/03/2024 1:47 AM CDT Pulse 94 05/03/2024 1:47 AM CDT Temperature 36.9 ??C (98.4 ??F) 05/03/2024 1:42 AM CD T Respiratory Rate 18 05/03/2024 1:42 AM CDT Oxygen Saturation 97% 05/03/2024 1:47 AM CDT Inhaled Oxygen Concentration - - Weight 117.5 kg (259 lb) 05/03/2024 1:42 AM CDT Height 172.7 cm (5' 8) 05/03/2024 1:42 AM CDT Body Mass Index 39.38 05/03/2024 1:42 AM CDT Plan of Treatment Health Maintenance Due Date Last Done Comments HIV for age 15-65 1999 BMI (ht and wt on same day) for age 18+ 09/23/2019 09/23/2018, 09/23/2018, 04/17/2017, Additional history exists Depression screening for age 12+ 10/04/2019 10/04/2018, 09/23/2018, 09/23/2018, Additional history exists Pap test for age 21-65 09/30/2022 9, 09/30/2019, 09/03/2015 (Completed outside of [facility]) COVID-19 vaccine series (2022- season) 2023 03/02/2021 Tetanus booster 10/04/2027 10/04/2017, 09/27/2015 Tdap Completed 10/04/2017, 09/27/2015 Hepatitis C screening for age 18-79 Completed 02/14/2020 Pneumococcal series for age 6-64 Aged Out No longer eligible based on patient's age to complete this topic Procedures Procedure Name Priority Date/Time Associated Diagnosis Comments RED CELL MORPHOLOGY STAT 05/03/2024 2 :17 AM CDT PLATELET ESTIMATE STAT 05/03/2024 2:1 7 AM CDT MANUAL DIFFERENTIAL STAT 05/03/2024 2 :17 AM CDT CBC WITH AUTO DIFFERENTIAL STAT 05/03/2024 2:17 AM CDT LIPASE STAT 05/03/2024 2:17 AM CDT HEPATIC FUNCTION PANEL STAT 05/03/2024 2:17 AM CDT CBC WITH AUTO DIFFERENTIAL STAT 05/03/2024 2:17 AM CDT BASIC METABOLIC PANEL STAT 05/03/2024 2:[address] ABDOMEN PELVIS W STAT 04/28/2024 1 0:41 AM CDT HEPATIC FUNCTION PANEL STAT 04/28/2024 9:23 AM CDT LIPASE STAT 04/28/2024 9:23 AM CDT ,SERUM STAT 04/28/2024 9:23 AM CDT BASIC METABOLIC PANEL STAT 04/28/2024 9:23 AM CDT CBC W PLT NO DIFF STAT 04/28/2024 9:2 3 AM CDT ANTI HCV MARY ELLEN 02/14/2020 2:02 PM CDT REPAIR TECH THIN PREP PAP SCREEN IMAGED Routine 09/30/2019 9:00 AM POCKETED SPRING MACHINE OPERATOR from Last 3 Months or Most Recently Relevant to Health Maintenance Results * CBC WITH AUTO DIFFERENTIAL (05/03/2024 2:17 AM CDT) WHITE BLOOD COUNT 9.6 4.5 - 11.0 thou/cu mm 05/03/2024 4:35 AM [facility] RED BLOOD COUNT 5.04 4.00 - 5.20 mil/cu mm 05/03/2024 4:35 AM [facility] HEMOGLOBIN 14.5 12.0 - 16.0 g/dL 05/03/2024 4:35 AM [facility] HEMATOCRIT 42.4 33.0 - 51.0 % 05/03/2024 4:35 AM [facility] MCV 84 80 - 100 fL 05/03/2024 4:35 AM [facility] MCH 28.8 26.0 - 34.0 pg 05/03/2024 4:35 AM [facility] MCHC 34.2 32.0 - 36.0 g/dL 05/03/2024 4:35 AM [facility] RDW 13.6 11.5 - 15.5 % 05/03/2024 4:35 AM [facility] PLATELET COUNT 399 140 - 440 thou/cu mm 05/03/2024 4:35 AM CDT [facility] MPV 10.5 6.5 - 11.0 fL 05/03/2024 4:35 AM CDT [facility] Blood BLOOD SPECIMEN / Unknown Venipuncture / Unknown 05/03/2024 2:17 AM CDT 05/03/2024 2:39 AM CDT Swathi Edwards MD HEMATOLOGY Performing Organization Address [facility] Co de Phone Number [facility] [address] [place] [address] * RED CELL MORPHOLOGY (05/03/2024 2:17 AM CDT) Pathologist [facility] [place] RBC COMMENT RBC morphology appears normal RBC morphology appears normal, RBC morphology within normal limits for newborns. 05/03/2024 4:35 AM CDT [facility] LARGE PLATELETS Present 05/03/2024 4:35 AM CDT [facility] Blood BLOOD SPECIMEN / Unknown Venipuncture / Unknown 05/03/2024 2:17 AM CDT 05/03/2024 2:39 AM CDT Swathi Edwards MD HEMATOLOGY Performing Organization Address [facility] de Phone Number [facility] [address] [place] [address] * PLATELET ESTIMATE (05/03/2024 2:17 AM CDT) Pathologist [facility] [place] PLATELET ESTIMATE Adequate Adequate, No estimate 05/03/2024 4:35 AM CDT [facility] Blood BLOOD SPECIMEN / Unknown Venipuncture / Unknown 05/03/2024 2:17 AM CDT 05/03/2024 2:39 AM CDT Swathi Edwards MD HEMATOLOGY Performing Organization Address [facility] Co de Phone Number [facility] [address] [place] [address] * (ABNORMAL) MANUAL DIFFERENTIAL (05/03/2024 2:17 AM CDT) % NEUTROPHILS 75.0 % 05/03/2024 4:35 AM T [facility] % LYMPHOCYTES 14.0 % 05/03/2024 4:35 AM [facility] % MONOCYTES 6.0 % 05/03/2024 4:35 AM T [facility] % EOSINOPHILS 5.0 % 05/03/2024 4:35 AM T [facility] % BASOPHILS 0.0 % 05/03/2024 4:35 AM T [facility] NEUTROPHILS ABSOLUTE 7.2(H) 1.7 - 7.0 thou/cu mm 05/03/2024 4:35 AM T [facility] LYMPHOCYTES ABSOLUTE 1.3 0.9 - 2.9 thou/cu mm 05/03/2024 4:35 AM T [facility] MONOCYTES ABSOLUTE 0.6 <0.9 thou/cu mm 05/03/2024 4:35 AM [facility] EOSINOPHILS ABSOLUTE 0.5(H) <0.5 thou/cu mm 05/03/2024 4:35 AM [facility] BASOPHILS ABSOLUTE 0.0 <0.3 thou/cu mm 05/03/2024 4:35 AM [facility] Blood BLOOD SPECIMEN / Unknown Venipuncture / Unknown 05/03/2024 2:17 AM CDT 05/03/2024 2:39 AM CDT Swathi Edwards MD HEMATOLOGY [facility] [address] [place] [address] * LIPASE (05/03/2024 2:17 AM CDT) Only the most recent of2 resultswithin the time period is included. LIPASE 23.2 13.0 - 60.0 IU/L 05/03/2024 3:05 AM T [facility] Blood BLOOD SPECIMEN / Unknown Venipuncture / Unknown 05/03/2024 2:17 AM CDT 05/03/2024 2:39 AM CDT Swathi Edwards MD CHEMISTRY [facility] [address] [place] [address] * (ABNORMAL) HEPATIC FUNCTION PANEL (05/03/2024 2:17 AM CDT) Only the most recent of2 resultswithin the time period is included. ALBUMIN 4.5 4.0 - 4.9 g/dL 05/03/2024 3:42 AM [facility] PROTEIN,TOTAL 8.2(H) 6.0 - 8.0 g/dL 05/03/2024 3:42 AM [facility] BILIRUBIN,TOTAL 0.8 0.0 - 1.2 mg/dL 05/03/2024 3:42 AM [facility] BILIRUBIN,DIRECT 0.2 0.0 - 0.3 mg/dL 05/03/2024 3:42 AM [facility] BILIRUBIN,INDIRE CT 0.6 0.2 - 0.8 mg/dL 05/03/2024 3:42 AM [facility] ALK PHOSPHATASE 140(H) 35 - 104 IU/L 05/03/2024 3:42 AM [facility] ALT (SGPT) 31 10 - 35 IU/L 05/03/2024 3:42 AM [facility] AST (SGOT) 26 10 - 35 IU/L 05/03/2024 3:42 AM [facility] Blood BLOOD SPECIMEN / Unknown Venipuncture / Unknown 05/03/2024 2:17 AM CDT 05/03/2024 2:39 AM CDT Swathi Edwards MD CHEMISTRY [facility] [address] [place] [address] * (ABNORMAL) BASIC METABOLIC PANEL (05/03/2024 2:17 AM CDT) Only the most recent of2 resultswithin the time period is included. SODIUM 141 136 - 145 mmol/L 05/03/2024 3:05 AM [facility] POTASSIUM 3.0(L) 3.5 - 5.1 mmol/L 05/03/2024 3:05 AM [facility] CHLORIDE 99 98 - 107 mmol/L 05/03/2024 3:05 AM [facility] CO2,TOTAL 31(H) 22 - 29 mmol/L 05/03/2024 3:05 AM [facility] ANION GAP 11 5 - 18 05/03/2024 3:05 AM [facility] GLUCOSE 131(H) 70 - 99 mg/dL 05/03/2024 3:05 AM [facility] CALCIUM 9.5 8.6 - 10.0 mg/dL 05/03/2024 3:05 AM [facility] BUN 16 6 - 20 mg/dL 05/03/2024 3:05 AM [facility] CREATININE 0.70 0.50 - 0.90 mg/dL 05/03/2024 3:05 AM [facility] BUN/CREAT RATIO 23(H) 10 - 20 3:05 AM [facility] eGFR >90 >90 mL/min/1.7 3m2 05/03/2024 3:05 AM [facility] Comment:As of 2022, eG FR is calculated by the CKD-EPI creatinine equation without race adjustment. ??eGFR can be influenced by muscle mass, exercise, and diet. ??The reported eGFR is an estimation only and is only applicable if the renal function is stable. Blood BLOOD SPECIMEN / Unknown Venipuncture / Unknown 05/03/2024 2:17 AM CDT 05/03/2024 2:39 AM T Swathi Edwards MD CHEMISTRY [facility] [address] [place] [address] * CT ABDOMEN PELVIS W (04/28/2024 10:41 AM CDT) Anatomical Region Laterality Modality Abdomen, Pelvis, AORTA, LIVER, SPLEEN Computed Tomography 04/28/2024 11:2 9 AM CDT Impressions 04/28/2024 11:29 AM CDT 1. No dilated loops of large or small intestine. Fluid noted within the colon which can be seen in a diarrheal illness. 2. Moderate hepatic steatosis. 3. Nonobstructing nephrolithiasis. Please note that all CT scans at this facility use dose modulation, iterative reconstruction, and/or weight-based dosing when appropriate to reduce radiation dose to as low as reasonably achievable. Dictated by Jose F Espinoza MD @ 04/28/2024 11:29:41 AM (Electronically Signed) Narrative 04/28/2024 11:29 AM CDT For Patients: ??As a result of the Century Cures Act, medical imaging exams and procedure reports are released immediately into your electronic medical record. ??You may view this report before your referring provider. ??If you have questions, please contact your health care provider. INDICATION: Abdominal pain TECHNIQUE: Axial images were obtained from the diaphragm to the pubic symphysis. Reformats were obtained in the coronal and sagittal plane. IV Contrast: 100 cc Omnipaque 300 Oral Contrast: None COMPARISON: Abdomen and pelvis CT 03/07/2018 FINDINGS: Lower chest: Unremarkable. Liver: Diffusely decreased density of the liver. 3 millimeter hypodense lesion at the dome which is too small for characterization (2, 51). Statistically speaking, in the absence of a known primary malignancy this would likely represent an incidental finding. Incidental note made of an accessory right hepatic vein. Gallbladder and bile ducts: Status post cholecystectomy. Spleen: Stable rim calcified lesion within the spleen measuring 2.1 centimeters, likely a calcified pseudocyst. Pancreas: Unremarkable. No mass or inflammation. Adrenal glands: Unremarkable. No nodules. Kidneys: Previously noted right renal cystic lesion at the mid right kidney is no longer seen with minimal scar at this level. Subcentimeter hypodense lesions within the right kidney which are too small for characterization. Exophytic cyst at the lower pole the right kidney measuring 2.5 centimeters. Subcentimeter hypodense lesion within the mid left kidney which is too small to characterize but similar to the prior exam. 1 millimeter nonobstructing stone right kidney. Vasculature: Unremarkable. GI tract: The stomach is unremarkable. No dilated loops of large or small intestine. Unremarkable appendix. Fluid noted throughout the colon. Pelvis: Intrauterine device present. Bones: Unremarkable for age. Procedure Note Jose F Espinoza MD - 04/28/2024 For Patients: As a result of the Century Cures Act, medical imagingexams and procedure reports are released immediately into your electronicmedical record. You may view this report before your referring provider.If you have questions, please contact your health care provider. INDICATION: Abdominal pain TECHNIQUE: Axial images were obtained from the diaphragm to the pubic symphysis. Reformats were obtained in the coronal and sagittal plane. IV Contrast: 100 cc Omnipaque 300 Oral Contrast: None COMPARISON: Abdomen and pelvis CT 03/07/2018 FINDINGS: Lower chest: Unremarkable. Liver: Diffusely decreased density of the liver. 3 millimeter hypodenselesion at the dome which is too small for characterization (2, 51).Statistically speaking, in the absence of a known primary malignancy thiswould likely represent an incidental finding. Incidental note made of anaccessory right hepatic vein. Gallbladder and bile ducts: Status post cholecystectomy. Spleen: Stable rim calcified lesion within the spleen measuring 2.1centimeters, likely a calcified pseudocyst. Pancreas: Unremarkable. No mass or inflammation. Adrenal glands: Unremarkable. No nodules. Kidneys: Previously noted right renal cystic lesion at the mid rightkidney is no longer seen with minimal scar at this level. Subcentimeterhypodense lesions within the right kidney which are too small forcharacterization. Exophytic cyst at the lower pole the right kidneymeasuring 2.5 centimeters. Subcentimeter hypodense lesion within the midleft kidney which is too small to characterize but similar to the priorexam. 1 millimeter nonobstructing stone right kidney. Vasculature: Unremarkable. GI tract: The stomach is unremarkable. No dilated loops of large or smallintestine. Unremarkable appendix. Fluid noted throughout the colon. Pelvis: Intrauterine device present. Bones: Unremarkable for age. IMPRESSION: 1. No dilated loops of large or small intestine. Fluid noted within thecolon which can be seen in a diarrheal illness. 2. Moderate hepatic steatosis. 3. Nonobstructing nephrolithiasis. Please note that all CT scans at this facility use dose modulation,iterative reconstruction, and/or weight-based dosing when appropriate toreduce radiation dose to as low as reasonably achievable. Dictated by Jose F Espinoza MD @ 04/28/2024 11:29:41 AM (Electronically Signed) Federico Nye MD CT * ,SERUM (04/28/2024 9:23 AM CDT) [facility] ,SERU M Negative Negative 04/28/2024 9:50 AM CDT [facility] Blood BLOOD SPECIMEN / Unknown Butterfly / Unknown 04/28/2024 9:23 AM CDT 04/28/2024 9:36 AM CDT Federico Nye MD CHEMISTRY [facility] [address] [place] [id number] * (ABNORMAL) CBC W PLT NO DIFF (04/28/2024 9:23 AM CDT) [facility] WHITE BLOOD COUNT 10.1 4.5 - 11.0 thou/cu mm 04/28/2024 9:40 AM T [facility] RED BLOOD COUNT 5.21(H) 4.00 - 5.20 mil/cu mm 04/28/2024 9:40 AM [facility] HEMOGLOBIN 15.2 12.0 - 16.0 g/dL 04/28/2024 9:40 AM T [facility] HEMATOCRIT 44.8 33.0 - 51.0 % 04/28/2024 9:40 AM [facility] MCV 86 80 - 100 fL 04/28/2024 9:40 AM [facility] MCH 29.2 26.0 - 34.0 pg 04/28/2024 9:40 AM CDT [facility] MCHC 33.9 32.0 - 36.0 g/dL 04/28/2024 9:40 AM CDT [facility] RDW 13.8 11.5 - 15.5 % 04/28/2024 9:40 AM CDT [facility] PLATELET COUNT 404 140 - 440 thou/cu mm 04/28/2024 9:40 AM CDT [facility] MPV 10.3 6.5 - 11.0 fL 04/28/2024 9:40 AM CDT [facility] Blood BLOOD SPECIMEN / Unknown Butterfly / Unknown 04/28/2024 9:23 AM CDT 04/28/2024 9:36 AM CDT Federico Nye MD HEMATOLOGY Performing Organization Address City/[facility]/ZIP Co de Phone Number [facility] [address] [place] [address] * ANTI HCV (02/14/2020 2:02 PM CDT) HEPATITIS C ANTIBODY Non-React cyrus Non-React cyrus 02/15/2020 1:08 PM CDT [facility] Comment:Antibodies to HCV no t detected; does not exclude the possibility of exposure to HCV. Blood BLOOD SPECIMEN / Unknown Extra Tube / Unknown 02/14/2020 2:02 PM CDT 02/14/2020 2:59 PM CDT Chrissie Triplett MD SEND OUTS [facility] [address] [place] [address], * (ABNORMAL) REPAIR TECH THIN PREP PAP SCREEN IMAGED (09/30/2019 9:00 AM POCKETED SPRING MACHINE OPERATOR) Case Report Gynecologic Cytology Report ? Case: [id number] ? Authorizing Provider: ??Ethel Black PA-C ?Collected: ? 09/30/2019 0900 ? Ordering Location: ? [facility] ?Received: ?10/02/2019 1224 ? First Screen: ?[place] ? Pathologist: ? Isamar Atkins DO ? Specimen: ?REPAIR TECH ThinPrep Vial Screening, Cervical/Vaginal ? 10/15/2019 9:07 AM [facility] INTERPRETATION/ RESULT ATYPICAL SQUAMOUS CELLS OF UNDETERMINED SIGNIFICANCE (ASCUS)(A) (none) 10/15/2019 9:07 AM [facility] NISM(S) Fungal organisms morphologically consistent with Estefania species 10/15/2019 9:07 AM [facility] SPECIMEN ADEQUACY Satisfactory for evaluation No endocervical component seen 10/15/2019 9:07 AM [facility] HPV REQUEST HPV and PAP 10/15/2019 9:07 AM POCKETED SPRING MACHINE OPERATOR [facility] Date of LMP 08/03/2019 10/15/2019 9:07 AM POCKETED SPRING MACHINE OPERATOR [facility] Last Pap Date 10/15/2019 9:07 AM [facility] Comment:unsure Abnormal Pap or [place] Bx in last 5 years 10/15/2019 9:07 AM POCKETED SPRING MACHINE OPERATOR [facility] Comment:2010; neg Menstrual Status 10/15/2019 9:07 AM POCKETED SPRING MACHINE OPERATOR [facility] Automated Review Successful 10/15/2019 9:07 AM [facility] Comment:Specimen processed s uccessfully by automated rink rat device, [employer] Imaging System, [employer] ANCILLARY TESTING REPAIR TECH HPV Ordered, Please see separate report 10/15/2019 9:07 AM [facility] Note The pap test is a [...] lesions. Cytology is screened and interpreted at [facility] - [address], [place] [address] and [facility] - [address]; [place] [address] and [facility] - [address]; [place] [address] and [facility] [address]; [place] [address] 10/15/2019 9:07 AM POCKETED SPRING MACHINE OPERATOR [facility] Other (Cervical/Vagina l) 09/30/2019 9:00 AM POCKETED SPRING MACHINE OPERATOR 10/02/2019 12:24 PM POCKETED SPRING MACHINE OPERATOR February Sofia BRADFORD PATHOLOGY/CYTOLOGY [facility] [address] [place] [address], [place] from Last 3 Months or Most [...] Code Status Discussion: Not Discussed Care Teams Baseball Sewer Hand Relationship Specialty Start Date End Date Ashu Bush MD [address] [place] [id number] PCP - General Family Practice 01/09/20
--- OUTSIDE RECORDS SUMMARY | 2024-06-20 10:23 | XMS_ITS | Data Portability ---
Author Organization [facility], [facility] Address [address] [place] [address] Assessment No assessment recorded. Plan of Treatment [...] chloride 5 mg tablet 2019 020 INTERFACE [facility] [address] [place] [address], [address], 0 10:26:03 Patient TargetsNo targets recorded. Patient [...] Details Recorded Time Cholecystectomy completed Jamilah ruth [facility] 06/30/2020 09:55:32 removal of ovarian cyst completed Jamilah ruth [facility] 06/30/2020 09:55:49 Imaging Results Imaging Date Name Status LastModified by Organiz ation Details LastModified Time 06/22/2020 CT, abdomen, w/ contrast completed [email or web address] Information not available 07/01/2020 08:53:50 Procedure Notes None recorded. Medical Equipment None Reported. Allergies Allergen ID Allergen Name Allergen Category Reaction Reaction Severity Criticality Documentation Date Start Date Code Code System Note Provider Name and Address Organization Details Recorded Time [id number] codeine medicatio n rash Not available Not available 06/30/2020 2670 RxNorm Jamilah ruth [facility] 0 09:53:45 Medications Name Sig [...] Updated DateTime 06/30/2020 173.99 cm 36.7 kg/m2 539209.13 g Jamilah Bailon [facility] 06/30/2020 09:52:56 Social History Question Answer Notes LastModified by Organizat ion Details LastModified Time Tobacco Smoking Status Never Smoker Jamilah ruth [facility] 06/30/2020 09:55:10 Do You Or Have You Ever Used E-cigarettes Or Vape? Never Used Electronic Cigarettes [email or web address] Information not available 06/30/2020 Sex: Unknown Functional Status None recorded. Mental Status None recorded. Family History Relationship Description Onset Age of this Age Resolved Age Notes Maternal Grandmother Family history of malignant neoplasm Medical History Condition Response Sexually Transmitted Infection N Diabetes N Bleeding Disorder N High Blood Pressure Y Kidney Stones Y Cancer Y Lung Disease N Depression N High Cholesterol Y GERD/Acid Reflux N Heart Disease N Gynecological HistoryNo gynecological history recorded. Obstetrics History GPAL:G 0 P 0 0 0 0 Past Encounters Encounter ID Performer Location Encounter Start Date Encounter Closed Date Diagnosis/Indication Diagnosis SNOMED-CT Code [id number] Oneal Ctaalan MD [facility] [address] [place] [id number] 06/30/2020 09:46:53 06/30/2020 11:53:58 Ureteric stone [id number] Health Concerns Section Related Observation LastModified by Organization Detai ls LastModified Time None Recorded Concern Status LastModified by Organization Details LastModified Time None Recorded Advance Directives Directive None Recorded Payers Encounter Date Sequence Insurance Name Policy Number Policy Guerrero Covered Member ID Guerrero Member ID Guarantor Name 06/30/2020 1 [facility] Gaviota Gill [id number] Gaviota Gill Notes Date Note Type Note Provider Name and Address Organization Details Recorded Time 06/30/2020 text/html HPI Notes: Tavo rizo thad the ER ([facility]) last week for flank pain now with [...] and coordinate their care. Oneal Catalan MD [address] [place] [address],[address], [place], [address], [facility] 06/30/2020 10:42:44 OBGyn Episode No OBEpisode recorded.
== END 2024-06-19 09:16 | disposition home or self-care (01) ==
LOC: NFLDREF 06-20 10:21
PROVIDERS: PCP Family Medicine; Referring Provider Family Medicine; Visit Provider Family Medicine
DX: E78.00 Pure hypercholesterolemia, unspecified (principal); I10 Essential (primary) hypertension; E66.9 Obesity, unspecified
CPT/HCPCS: 80053; 80061; 84443

== ENCOUNTER 2024-09-11 13:30 | Outpatient (CLI) | payer BC, SELFPAY ==
--- OUTSIDE RECORDS SUMMARY | 2024-09-11 13:41 | XMS_ITS | Clinical Summary ---
Author Organization [facility] Address [place], [place] [address] Care Team Providers Care Purchase Price Analyst Name Role Phone Ashu Bush MD Primary Care Provider [phone] Allergies Active Allergy Reactions Criticality Noted Date [...] BMI 35-39.9 08/30/2016 Hyperlipidemia, unspecified 08/30/2016 Melanoma Overview (08/30/2016): left arm, age 25, 2 lesions Immunizations [...] CS-LT ranv Spinal 8 9 AGRIM SON,B GWHIT KARENA Dr. Nick et Delivery Location:[facility] Last Filed Vital Signs Vital Sign Reading [...] 09/30/2022 9, 09/30/2019, 09/03/2015 [facility] COVID-19 vaccine series ( season) 2024 03/02/2021 Tetanus booster 10/04/2027 10/04/2017, 09/27/2015 Tdap Completed 10/04/2017, 09/27/2015 Hepatitis C screening for age 18-79 Completed 02/14/2020 Pneumococcal series for age 6-64 Aged Out No longer eligible based on patient's age to complete this topic Procedures Procedure Name Priority Date/Time Associated Diagnosis Comments ANTI HCV MARY ELLEN 02/14/2020 2:02 PM CDT LIDDER THIN PREP PAP SCREEN IMAGED Routine 09/30/2019 9:00 AM [employer] from Last 3 Months or Most Recently Relevant to Health Maintenance Results * ANTI HCV (02/14/2020 2:02 PM CDT) [facility] HEPATITIS C ANTIBODY Non-React cyrus Non-React cyrus 02/15/2020 1:08 PM CDT [facility] Comment:Antibodies to HCV no t detected; does not exclude the possibility of exposure to HCV. Blood BLOOD SPECIMEN / Unknown Extra Tube / Unknown 02/14/2020 2:02 PM CDT 02/14/2020 2:59 PM CDT Chrissie Triplett MD SEND OUTS [facility] [address] [place] [address], [place] * (ABNORMAL) LIDDER THIN PREP PAP SCREEN IMAGED (09/30/2019 9:00 AM [employer]) [facility] Case Report Gynecologic Cytology Report ? Case: [id number] ? Authorizing Provider: ??Ethel Black PA-C ?Collected: ? 09/30/2019 0900 ? Ordering Location: ? [facility] ?Received: ?10/02/2019 1224 ? First Screen: ?[facility] [place] ? Pathologist: ? Leke, Isamar Rosa, ? Specimen: ?LIDDER ThinPrep Vial Screening, Cervical/Vaginal ? 10/15/2019 9:07 AM [facility] [employer] [facility]-C ENTRAL LABORATORY INTERPRETATION/ RESULT ATYPICAL SQUAMOUS CELLS OF UNDETERMINED SIGNIFICANCE (ASCUS)(A) (none) 10/15/2019 9:07 AM [facility] NISM(S) Fungal organisms morphologically consistent with Estefania species 10/15/2019 9:07 AM [facility] SPECIMEN ADEQUACY Satisfactory for evaluation No endocervical component seen 10/15/2019 9:07 AM [facility] ENTRAL LAB[facility] HPV REQUEST HPV and PAP 10/15/2019 9:07 AM [facility]-C ENTRAL LABORATORY Date of LMP 08/03/2019 10/15/2019 9:07 AM [facility] Last Pap Date 10/15/2019 9:07 AM [facility] Comment:unsure Abnormal Pap or [place] Bx in last 5 years 10/15/2019 9:07 AM [facility] Comment:2010; neg Menstrual Status 10/15/2019 9:07 AM [facility] Automated Review Successful 10/15/2019 9:07 AM [facility] Comment:Specimen processed s uccessfully by automated emergency specialist device, ThinPrep Imaging System, [employer] ANCILLARY TESTING LIDDER HPV Ordered, Please see separate report 10/15/2019 9:07 AM [facility] EN[facility] Note The pap test is [...] lesions. Cytology is screened and interpreted at [facility] - [address], [place] [address] and [facility] - [address]; [place] [address] and [facility] - [address]; [place] [address] and [facility] [address]; [place] [address] 10/15/2019 9:07 AM [facility] [facility]-C ENTRAL LABORATORY Other (Cervical/Vagina l) 09/30/2019 9:00 AM [employer] 10/02/2019 12:24 PM [employer] February Sofia [facility] PATHOLOGY/CYTOLOGY Performing Organization Address City/State/[facility] Co de Phone Number [facility] [address] [place] [address], from Last 3 Months or Most Recently [...] Code Status Discussion: Not Discussed Care Teams Purchase Price Analyst Relationship Specialty Start Date End Date Ashu Bush MD PCP - General Family Practice 01/09/20
== END 2024-09-11 13:31 | disposition home or self-care (01) ==
LOC: LKVREF 13:39
PROVIDERS: PCP Family Medicine; Visit Provider Family Medicine
DX: Z00.00 Encounter for general adult medical examination without abnormal findings (principal); E78.00 Pure hypercholesterolemia, unspecified; I10 Essential (primary) hypertension; E66.9 Obesity, unspecified; R41.840 Attention and concentration deficit; M54.9 Dorsalgia, unspecified
CPT/HCPCS: 80053; 80061

== ENCOUNTER 2024-11-23 22:21 | Emergency (ER) | payer BC, SELFPAY ==
[2024-11-23 22:30] VITALS: BP 168/117; PULSE 78; RESP 18; TEMP 36.4; O2SAT 99; BMI 36.5
--- NOTE | 2024-11-23 23:02 | ED.GENADULT ---
HPI - General Adult General Chief complaint: Abdominal Pain <Laura Vega MD - Last Filed: 11/23/24 23:57> Stated complaint: possible kidney stone <Laura Vega MD - Last Filed: 11/23/24 23:57> Time Seen by Provider: 11/23/24 22:45 <Laura Vega MD - Last Filed: 11/23/24 23:57> Source: patient <Laura Vega MD - Last Filed: 11/23/24 23:57> Mode of arrival: ambulatory <Laura Vega MD - Last Filed: 11/23/24 23:57> Limitations: no limitations <Laura Vega MD - Last Filed: 11/23/24 23:57> History of Present Illness HPI narrative: 39 year old female presenting with left-sided flank and abdominal pain. Pain started yesterday. It is migrating down into the groin. Insert reminiscent of when she had kidney stones several years ago. She has been vomiting. She denies fevers or chills. No dysuria. No diarrhea. No chest pain or shortness of breath. No epigastric discomfort. She states that her urine is dark but has not seen any blood. <Laura Vgea MD - Last Filed: 11/23/24 23:57> Related Data Home medications: Home Medications ?Medication ?Instructions ?Recorded ?Confirmed levonorgestrel 1 intrauterine ONCE 08/11/22 09/11/24 aspirin 81 mg tablet,delayed 81 mg PO QDAY 06/08/23 11/23/24 release (Enteric Coated Aspirin) ferrous sulfate 325 mg (65 mg 325 mg PO QDAY 09/11/24 11/23/24 iron) tablet mecobalamin (vitamin B12) 2,500 mcg PO 09/11/24 09/11/24 mcg chewable tablet zinc glycinate 7.5 mg chewable mg PO 09/11/24 09/11/24 tablet Previous Rx's ?Medication ?Instructions ?Recorded albuterol sulfate 2.5 mg/3 mL 2.5 mg (3 mL) inhalation Q4-6H PRN 08/16/23 (0.083 %) solution for nebulization bronchospasm #90 mL clobetasol 0.05 % scalp solution 1 applic topical BID #50 mL 11/29/23 guanfacine 1 mg tablet 1 mg PO QHS #90 tabs 04/10/24 propranolol 60 mg capsule,24 60 mg PO DAILY #90 caps 04/10/24 hr,extended release amlodipine 2.5 mg tablet 2.5 mg PO QDAY #90 tabs 09/11/24 bupropion HCl 150 mg 24 hr tablet, 150 mg PO QAM #90 tabs 09/11/24 extended release (Wellbutrin XL) dextroamphetamine-amphetamine ER 25 mg PO QAM #30 caps 09/11/24 25 mg 24hr capsule,extend release dextroamphetamine-amphetamine ER 25 mg PO QAM #30 caps 09/11/24 25 mg 24hr capsule,extend release (Adderall XR) dextroamphetamine-amphetamine ER 25 mg PO QAM #30 caps 09/11/24 25 mg 24hr capsule,extend release (Adderall XR) eszopiclone 2 mg tablet (Lunesta) 2 mg PO QHS PRN insomnia #30 tabs 09/11/24 ketoconazole 2 % shampoo 1 applic topical 2XW #120 mL 09/11/24 semaglutide (weight loss) 0.25 0.25 mg (0.5 mL) subcut QWEEK #2 mL 09/11/24 mg/0.5 mL subcutaneous pen injector (Wegovy) tizanidine 4 mg tablet 4 mg PO Q8H PRN muscle spasticity 09/11/24 #90 tabs rosuvastatin 10 mg tablet 10 mg PO QDAY #90 tabs 09/14/24 guanfacine 2 mg tablet,extended 2 mg PO QPM #90 tabs 09/16/24 release 24 hr hydrochlorothiazide 25 mg tablet 25 mg PO QAM #180 tabs 09/16/24 potassium chloride 20 mEq 20 meq PO DAILY #90 ea 10/02/24 tablet,extended release ondansetron HCl 4 mg tablet 4 mg PO BID-TID PRN nausea and 10/06/24 vomiting #30 tabs semaglutide (weight loss) 0.5 0.5 mg (0.5 mL) subcut QWEEK #2 mL 10/08/24 mg/0.5 mL subcutaneous pen injector (Wegovy) cephalexin 500 mg capsule 500 mg PO QID #20 caps 11/24/24 <Laura Vega MD - Last Filed: 11/23/24 23:57> Allergies/adverse reactions: Allergies Allergy/AdvReac Type Severity Reaction Status Date / Time hydrocodone AdvReac Severe aggression Verified 11/23/24 22:37 hydromorphone AdvReac Severe aggression Verified 11/23/24 22:37 oxycodone AdvReac Severe aggression Verified 11/23/24 22:37 codeine AdvReac Intermediate GI upset Verified 11/23/24 22:37 Eggs or Egg-derived Products Allergy Unknown Uncoded 09/11/24 13:02 <Laura Vega MD - Last Filed: 11/23/24 23:57> Review of Systems Status of ROS: Reports: 10 or more systems reviewed and unremarkable except as noted in History and below <Laura Vega MD - Last Filed: 11/23/24 23:57> [facility] Medical History: Medical History Psoriasis ?L40.9 - Psoriasis, unspecified (ICD-10) Numerous moles ?D22.9 - Melanocytic nevi, unspecified (ICD-10) Insomnia ?G47.00 - Insomnia, unspecified (ICD-10) Sleep apnea ?G47.30 - Sleep apnea, unspecified (ICD-10) Reactive airway disease ?J45.909 - Unspecified asthma, uncomplicated (ICD-10) Headache ?R51.9 - Headache, unspecified (ICD-10) Obesity (BMI 30-39.9) ?E66.9 - Obesity, unspecified (ICD-10) <Laura Vega MD - Last Filed: 11/23/24 23:57> Social History: Social History Smoking Status: Never smoker How often do you have a drink containing alcohol: never How often do you have six or more drinks on one occasion: Never AUDIT-C Alcohol total score: 0 Non-prescribed substance use: denies use service: No <Laura Vega MD - Last Filed: 11/23/24 23:57> Exam Narrative: Exam Narrative: Well-nourished well-developed patient in moderate distress. Alert and oriented. Answers questions appropriately. Mood and affect are appropriate. Thoughts are goal oriented and rational. No respiratory distress. Patient is slightly diaphoretic. HEENT: Normocephalic atraumatic. Pupils are equally round reactive to light. Extraocular muscles are intact. Conjunctivae are moist without any icterus noted. Moist mucous membranes. Neck is soft. Cardiovascular: Heart is regular rate and rhythm S1 and S2 are present without any murmurs. Lungs: Clear to auscultation bilaterally no wheezes rhonchi or rales are appreciated. Patient takes deep breaths without any discomfort. Abdomen: Soft and nondistended with normal bowel sounds. She has mild left lower quadrant pain. She has exquisite CVA tenderness. Extremities: Bilateral lower extremities are without edema. Skin: Well perfused without any obvious rashes. <Laura Vega MD - Last Filed: 11/23/24 23:57> Const: Vital Signs, click to edit/add: Vital Signs - 24 hr 11/23/24 22:30 11/24/24 00:40 Temperature 97.6 F Pulse Rate [Pulse Oximeter] 78 86 Respiratory Rate 18 16 Blood Pressure [Ri ght Upper Arm] 168/117 H 154/109 H Pulse Oximetry 99 97 Oxygen Delivery Me thod Room Air Room Air <Laura Vega MD - Last Filed: 11/23/24 23:57> Vital Signs, click to edit/add: Vital Signs - 24 hr 11/23/24 22:30 11/24/24 00:40 Temperature 97.6 F Pulse Rate [Pulse Oximeter] 78 86 Respiratory Rate 18 16 Blood Pressure [Ri ght Upper Arm] 168/117 H 154/109 H Pulse Oximetry 99 97 Oxygen Delivery Me thod Room Air Room Air <Hermilo Alberts DO - Last Filed: 11/24/24 01:07> Course Course ED Course: IV is established and patient is given Toradol and Zofran. Normal saline is started. CBCs unremarkable. Chemistries are unremarkable. UA shows 3+ protein, 1+ bilirubin. CT scan pending at this time. Patient will be transferred to oncoming physician. <Laura Vega MD - Last Filed: 11/23/24 23:57> Vital Signs Vital signs: Initial Vital Signs Temperature 97.6 F 11/23/24 22:30 Temperature Source Temporal Artery Scan 11/23/24 22:30 Pulse Rate 78 11/23/24 22:30 Respiratory Rate 18 11/23/24 22:30 Blood Pressure 168/117 H 11/23/24 22:30 Blood Pressure Mean 134 H 11/23/24 22:30 Blood Pressure Position Sitting 11/23/24 22:30 Pulse Oximetry 99 11/23/24 22:30 Oxygen Delivery Method Room Air 11/23/24 22:30 Vital Signs Temperature 97.6 F 11/23/24 22:30 Pulse Rate 78 11/23/24 22:30 Respiratory Rate 18 11/23/24 22:30 Blood Pressure 168/117 H 11/23/24 22:30 Pulse Oximetry 99 11/23/24 22:30 Oxygen Delivery Method Room Air 11/23/24 22:30 Temperature 97.6 F 11/23/24 22:30 Pulse Rate 86 11/24/24 00:40 Respiratory Rate 16 11/24/24 00:40 Blood Pressure 154/109 H 11/24/24 00:40 Pulse Oximetry 97 11/24/24 00:40 Oxygen Delivery Method Room Air 11/24/24 00:40 <Laura Vega MD - Last Filed: 11/23/24 23:57> Initial Vital Signs Temperature 97.6 F 11/23/24 22:30 Temperature Source Temporal Artery Scan 11/23/24 22:30 Pulse Rate 78 11/23/24 22:30 Respiratory Rate 18 11/23/24 22:30 Blood Pressure 168/117 H 11/23/24 22:30 Blood Pressure Mean 134 H 11/23/24 22:30 Blood Pressure Position Sitting 11/23/24 22:30 Pulse Oximetry 99 11/23/24 22:30 Oxygen Delivery Method Room Air 11/23/24 22:30 Vital Signs Temperature 97.6 F 11/23/24 22:30 Pulse Rate 78 11/23/24 22:30 Respiratory Rate 18 11/23/24 22:30 Blood Pressure 168/117 H 11/23/24 22:30 Pulse Oximetry 99 11/23/24 22:30 Oxygen Delivery Method Room Air 11/23/24 22:30 Temperature 97.6 F 11/23/24 22:30 Pulse Rate 86 11/24/24 00:40 Respiratory Rate 16 11/24/24 00:40 Blood Pressure 154/109 H 11/24/24 00:40 Pulse Oximetry 97 11/24/24 00:40 Oxygen Delivery Method Room Air 11/24/24 00:40 <Hermilo Alberts DO - Last Filed: 11/24/24 01:07> Medications Administered Medications: Discontinued Medications Generic Name Dose Route Start Last Admin Trade Name Freq PRN Reason Stop Dose Admin Sodium Chloride 1,000 mls @ 1,000 mls/hr 11/23/24 23:00 11/23/24 23:54 0.9 % Sodium Chloride 1000 Ml IV 11/23/24 23:59 Infused .Q1H ARUN Infusion Ketorolac Tromethamine 30 mg 11/23/24 22:51 11/23/24 23:10 Ketorolac 30 Mg/Ml Inj IVP 11/23/24 22:52 30 mg ONCE ONE Administration Ondansetron HCl 4 mg 11/23/24 22:51 11/23/24 23:10 Ondansetron 2 Mg/Ml Inj IVP 11/23/24 22:52 4 mg ONCE ONE Administration <Laura Vega MD - Last Filed: 11/23/24 23:57> Discontinued Medications Generic Name Dose Route Start Last Admin Trade Name Freq PRN Reason Stop Dose Admin Sodium Chloride 1,000 mls @ 1,000 mls/hr 11/23/24 23:00 11/23/24 23:54 0.9 % Sodium Chloride 1000 Ml IV 11/23/24 23:59 Infused .Q1H ARUN Infusion Ketorolac Tromethamine 30 mg 11/23/24 22:51 11/23/24 23:10 Ketorolac 30 Mg/Ml Inj IVP 11/23/24 22:52 30 mg ONCE ONE Administration Ondansetron HCl 4 mg 11/23/24 22:51 11/23/24 23:10 Ondansetron 2 Mg/Ml Inj IVP 11/23/24 22:52 4 mg ONCE ONE Administration <Hermilo Alberts DO - Last Filed: 11/24/24 01:07> Medical Decision Making MDM Narrative Medical decision making narrative: Patient was signed out to me pending CT scan. CT scan returned showing no acute concerning abnormalities. There is a very small stone in the right kidney that is not causing any obstruction. Her pain is mostly in the left flank radiating to her left groin. She is moderately constipated. Toradol did help with her pain so will give her prescription of this via [facility]. She currently does not have a UTI but states symptoms feel somewhat similar to previous UTIs she has had in the past and considering she describes pressure sensation when she urinates she could be having the very early stages of UTI has not showed up in her urinalysis yet. I will give her prescription for antibiotics sent to her pharmacy and she will pick it up if symptoms are persisting throughout tomorrow. Also former take some stool softeners to try and help with her constipation. She states she is agreeable to this plan. Patient will be discharged. <Hermilo Alberts, DO - Last Filed: 11/24/24 01:07> Lab Data Labs: Lab Results 11/23/24 Range/Units 23:16 WBC 8.61 (4.50-11.00) K/uL RBC 5.52 H (4.00-5.20) m/uL Hgb 15.2 (12.0-16.0) gm/dL Hct 46.7 (33.0-51.0) % MCV 85 (80-100) fL MCH 28 (26-34) pg MCHC 33 (32-36) gm/dL RDW Coeff of Jud 13.1 (11.5-15.5) % Plt Count 397 (140-440) K/uL Neut % (Auto) 70.2 (42.0-72.0) % Lymph % (Auto) 19.7 L (20-44) % [place] % (Auto) 6.5 (0.0-11.0) % Eos % (Auto) 2.4 (0.0-7.0) % Baso % (Auto) 0.2 (0.0-3.0) % Neut # (Auto) 6.03 (1.7-7.0) K/uL Lymph # (Auto) 1.70 (0.90-2.90) K/uL [place] # (Auto) 0.60 (0.00-0.90) K/UL Eos # (Auto) 0.21 (0.00-0.50) K/uL Baso # (Auto) 0.02 (0.00-0.30) K/uL Abs Immat Gran (auto) 0.09 (0.00-0.30) K/uL Imm/Tot Granulo (auto) 1.0 % Sodium 140 (135-149) mmol/L Potassium 4.2 (3.6-5.1) mmol/L Chloride 103 (96-114) mmol/L Carbon Dioxide 26 (20-32) mmol/L Anion Gap 11 (7-15) mEq/L BUN 16 (5-24) mg/dL Creatinine 0.7 (0.5-1.5) mg/dL Estimated Creat Clear 107.77 Estimated GFR 112 ml/min Glucose 128 H (60-115) mg/dL Calcium 9.5 (8.4-10.6) mg/dL Urine Color Yellow (Yellow) Urine Appearance Clear (Clear) Urine pH 5.5 (5.0-8.5) Ur Specific [place] >= 1.030 (1.000-1.030) Urine Protein 3+ A (Negative) Urine Glucose (UA) Negative (Negative) Urine Ketones Trace A (Negative) Urine Blood Negative (Negative) Urine Nitrite Negative (Negative) Urine Bilirubin 1+ A (Negative) Urine Urobilinogen 1.0 (0.2-1.0) Ur Leukocyte Esterase Negative (Negative) Urine RBC 0-2 (0-2) Urine WBC 0-2 (0-5) Ur Squamous Epith Cells Few (None-Few) Calcium Oxalate Crystal Moderate A (None) Urine Bacteria Few A (None) <Laura Vega MD - Last Filed: 11/23/24 23:57> Lab Results 11/23/24 Range/Units 23:16 WBC 8.61 (4.50-11.00) K/uL RBC 5.52 H (4.00-5.20) m/uL Hgb 15.2 (12.0-16.0) gm/dL Hct 46.7 (33.0-51.0) % MCV 85 (80-100) fL MCH 28 (26-34) pg MCHC 33 (32-36) gm/dL RDW Coeff of Jud 13.1 (11.5-15.5) % Plt Count 397 (140-440) K/uL Neut % (Auto) 70.2 (42.0-72.0) % Lymph % (Auto) 19.7 L (20-44) % [place] % (Auto) 6.5 (0.0-11.0) % Eos % (Auto) 2.4 (0.0-7.0) % Baso % (Auto) 0.2 (0.0-3.0) % Neut # (Auto) 6.03 (1.7-7.0) K/uL Lymph # (Auto) 1.70 (0.90-2.90) K/uL [place] # (Auto) 0.60 (0.00-0.90) K/UL Eos # (Auto) 0.21 (0.00-0.50) K/uL Baso # (Auto) 0.02 (0.00-0.30) K/uL Abs Immat Gran (auto) 0.09 (0.00-0.30) K/uL Imm/Tot Granulo (auto) 1.0 % Sodium 140 (135-149) mmol/L Potassium 4.2 (3.6-5.1) mmol/L Chloride 103 (96-114) mmol/L Carbon Dioxide 26 (20-32) mmol/L Anion Gap 11 (7-15) mEq/L BUN 16 (5-24) mg/dL Creatinine 0.7 (0.5-1.5) mg/dL Estimated Creat Clear 107.77 Estimated GFR 112 ml/min Glucose 128 H (60-115) mg/dL Calcium 9.5 (8.4-10.6) mg/dL Urine Color Yellow (Yellow) Urine Appearance Clear (Clear) Urine pH 5.5 (5.0-8.5) Ur Specific [place] >= 1.030 (1.000-1.030) Urine Protein 3+ A (Negative) Urine Glucose (UA) Negative (Negative) Urine Ketones Trace A (Negative) Urine Blood Negative (Negative) Urine Nitrite Negative (Negative) Urine Bilirubin 1+ A (Negative) Urine Urobilinogen 1.0 (0.2-1.0) Ur Leukocyte Esterase Negative (Negative) Urine RBC 0-2 (0-2) Urine WBC 0-2 (0-5) Ur Squamous Epith Cells Few (None-Few) Calcium Oxalate Crystal Moderate A (None) Urine Bacteria Few A (None) <Hermilo Alberts DO - Last Filed: 11/24/24 01:07> Imaging Data CT scan abdomen and pelvis: Attestation: I have reviewed the pertinent imaging results. <Hermilo Alberts DO - Last Filed: 11/24/24 01:07> Radiologist's impression: Punctate nonobstructing right renal stone, no other significant abnormality appreciated. Please note that all CT scans at this facility use dose modulation, iterative reconstruction, and/or weight-based dosing when appropriate to reduce radiation dose to as low as reasonably achievable. Dictated by Carmelo Fox MD @ 11/24/2024 12:47:48 AM <Hermilo Alberts DO - Last Filed: 11/24/24 01:07> Discharge Plan Discharge Clinical Impression: Abdominal pain Qualifiers: Abdominal location: left lower quadrant Qualified Code(s): R10.32 - Left lower quadrant pain <Laura Vega MD - Last Filed: 11/23/24 23:57> Patient Disposition: Home, Self-Care <Laura Vega MD - Last Filed: 11/23/24 23:57> Condition: Stable <Laura Vega MD - Last Filed: 11/23/24 23:57> Instructions: Flank Pain (ED) <Laura Vega MD - Last Filed: 11/23/24 23:57> Additional Instructions: I am not sure what is causing his symptoms at this time but we do not see any concerning abnormalities any labs or imaging. Considering your having some pressure in urination somewhat similar symptoms her previous UTI I will prescribe an antibiotic for you to sheepskin pickler from the pharmacy tomorrow if symptoms continue to persist. This could be either early stages of UTI it have just not showed up in the urinalysis yet. Her also mildly constipated I recommend taking stool softeners. 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 Return for new or worsening symptoms. <Laura Vega MD - Last Filed: 11/23/24 23:57> Prescriptions: New cephalexin 500 mg capsule 500 mg PO QID Qty: 20 0RF No Action clobetasol 0.05 % solution 1 applic topical BID Qty: 50 1RF Rx Instructions: Apply topically to scalp twice daily for 4 weeks, then use twice daily on Sunday and Sunday only aspirin [Enteric Coated Aspirin] 81 mg tablet,delayed release (DR/EC) 81 mg PO QDAY guanfacine 1 mg tablet 1 mg PO QHS Qty: 90 3RF propranolol 60 mg capsule,extended release 24 hr 60 mg PO DAILY Qty: 90 3RF levonorgestrel 20 mcg/24 hours (7 yrs) 52 mg intrauterine device 1 intrauterine ONCE albuterol sulfate 2.5 mg /3 mL (0.083 %) solution for nebulization 2.5 mg inhalation Q4-6H PRN (Reason: bronchospasm) Qty: 90 0RF zinc glycinate 7.5 mg tablet,chewable PO mecobalamin (vitamin B12) 2,500 mcg tablet,chewable PO ferrous sulfate 325 mg (65 mg iron) tablet 325 mg PO QDAY bupropion HCl [Wellbutrin XL] 150 mg tablet extended release 24 hr 150 mg PO QAM Qty: 90 3RF amlodipine 2.5 mg tablet 2.5 mg PO QDAY Qty: 90 3RF ketoconazole 2 % shampoo 1 applic topical 2XW Qty: 120 1RF dextroamphetamine-amphetamine [Adderall XR] 25 mg capsule,extended release 24hr 25 mg PO QAM Qty: 30 0RF dextroamphetamine-amphetamine 25 mg capsule,extended release 24hr 25 mg PO QAM Qty: 30 0RF Rx Instructions: fill 10/12/24 dextroamphetamine-amphetamine [Adderall XR] 25 mg capsule,extended release 24hr 25 mg PO QAM Qty: 30 0RF Rx Instructions: 11/11/24 eszopiclone [Lunesta] 2 mg tablet 2 mg PO QHS PRN (Reason: insomnia) Qty: 30 5RF tizanidine 4 mg tablet 4 mg PO Q8H PRN (Reason: muscle spasticity) Qty: 90 1RF Wegovy 0.25 mg/0.5 mL pen injector 0.25 mg subcut QWEEK Qty: 2 0RF Rx Instructions: administer weeks 1 through 4 of therapy rosuvastatin 10 mg tablet 10 mg PO QDAY Qty: 90 3RF guanfacine 2 mg tablet extended release 24 hr 2 mg PO QPM Qty: 90 1RF hydrochlorothiazide 25 mg tablet 25 mg PO QAM Qty: 180 0RF potassium chloride 20 mEq tablet extended release 20 meq PO DAILY Qty: 90 1RF ondansetron HCl 4 mg tablet 4 mg PO BID-TID PRN (Reason: nausea and vomiting) Qty: 30 1RF Wegovy 0.5 mg/0.5 mL pen injector 0.5 mg subcut QWEEK Qty: 2 1RF Rx Instructions: administer weeks 5 through 8 of therapy <Laura Vega MD - Last Filed: 11/23/24 23:57> Follow Up/Referrals: Ashu Bush MD [Primary Care Provider] - <Laura Vega MD - Last Filed: 11/23/24 23:57> Stand Alone Forms: My[facility] Info Instructions <Laura Vega MD - Last Filed: 11/23/24 23:57>
[2024-11-23] MEDS: ONDANSETRON 2 MG/ML inj 4 MG IVP (23:10)
[2024-11-23] MEDS: KETOROLAC 30 MG/ML inj IVP (23:10)
[2024-11-23] MEDS: 0.9 % SODIUM CHLORIDE 1000 ml 1,000 ML IV (23:14)
[2024-11-23 23:26] LABS: Basophils Absolute Auto 0.02 K/uL (0.00-0.30); Basophils Percent Auto 0.2 % (0.0-3.0); Eosinophils Absolute Auto 0.21 K/uL (0.00-0.50); Eosinophils Percent Auto 2.4 % (0.0-7.0); Hematocrit 46.7 % (33.0-51.0); Hemoglobin* 15.2 gm/dL (12.0-16.0); Immature Granulocytes Abs Auto 0.09 K/uL (0.00-0.30); Lymphocytes Percent Auto 19.7 % (20-44); Mean Corpuscular HGB Conc 33 gm/dL (32-36); Mean Corpuscular Hemoglobin 28 pg (26-34); Mean Corpuscular Volume 85 fL (80-100); Monocytes Percent Auto 6.5 % (0.0-11.0); Neutrophils Absolute Auto 6.03 K/uL (1.7-7.0); Neutrophils Percent Auto 70.2 % (42.0-72.0); Platelet Count* 397 K/uL (140-440); RDW Coefficient of Variation % 13.1 % (11.5-15.5); Red Blood Count 5.52 m/uL (4.00-5.20); White Blood Count* 8.61 K/uL (4.50-11.00)
[2024-11-23 23:29] LABS: Appearance Urine Clear (Clear); Bilirubin Urine 1+ (Negative); Blood Urine Negative (Negative); Color Urine Yellow (Yellow); Glucose Urine Negative (Negative); Ketones Urine Trace (Negative); Leukocyte Esterase Urine Negative (Negative); Nitrite Urine Negative (Negative); Protein Urine 3+ (Negative); Specific Gravity Urine >= 1.030 (1.000-1.030); pH Urine 5.5 (5.0-8.5)
[2024-11-23 23:31] LABS: Bacteria Urine Few; RBC Urine 0-2 (0-2); Squamous Epithelial Cell Urine Few (None-Few); WBC Urine 0-2 (0-5)
[2024-11-23 23:32] LABS: Calcium Oxalate Crystals Urine Moderate; Slide Review Reflex No
[2024-11-23 23:40] LABS: Chloride* 103 mmol/L (96-114)
[2024-11-23 23:41] LABS: Potassium* 4.2 mmol/L (3.6-5.1); Sodium* 140 mmol/L (135-149)
[2024-11-23 23:43] LABS: Creatinine* 0.7 mg/dL (0.5-1.5); Est. Creatinine Clearance* 107.77; Estimated Glomerular Filt Rate 112 ml/min
[2024-11-23 23:44] LABS: Anion Gap 11 mEq/L (7-15); Blood Urea Nitrogen* 16 mg/dL (5-24); Calcium* 9.5 mg/dL (8.4-10.6); Carbon Dioxide* 26 mmol/L (20-32); Glucose* 128 mg/dL (60-115)
--- NOTE | 2024-11-24 | CRLHL7_ITS ---
For Patients: As a result of the Century Cures Act, medical imaging exams and procedure reports are released immediately into your electronic medical record. You may view this report before your referring provider. If you have questions, please contact your health care provider. Indication: Concern for renal calculi Technique: Noncontrast CT through the abdomen and pelvis with multiplanar reformats. Comparison: CT abdomen pelvis performed 09/19/2022 Findings: Lower chest: No acute abnormality appreciated. Hepatobiliary: No significant parenchymal abnormality is appreciated. Cholecystectomy. Spleen: Unchanged partially calcified cyst. Pancreas: No acute abnormality appreciated. Adrenal glands: No acute abnormality appreciated. Kidneys: Punctate nonobstructing right renal stone. Bowel: No obstruction. No focal perienteric or pericolonic stranding is appreciated. The appendix is visualized and appears unremarkable. Vascular: Poorly evaluated on this noncontrast examination. Lymph nodes: No gross lymphadenopathy. Peritoneum: No free air. No free fluid. : IUD present. Soft tissues: No acute abnormality appreciated. Bones: No acute fracture. No lytic or blastic lesion. Impression: Punctate nonobstructing right renal stone, no other significant abnormality appreciated. Please note that all CT scans at this facility use dose modulation, iterative reconstruction, and/or weight-based dosing when appropriate to reduce radiation dose to as low as reasonably achievable. Dictated by Carmelo Fox MD @ 11/24/2024 12:47:48 AM (Electronically Signed)
[2024-11-24 00:40] VITALS: BP 154/109; PULSE 86; RESP 16; O2SAT 97
== END 2024-11-24 01:23 | disposition home or self-care (01) ==
PROVIDERS: Family Medicine; Emergency Provider Student in an Organized Health Care Education/Training Program; PCP Family Medicine
DX: R10.9 Unspecified abdominal pain (principal)
CPT/HCPCS: 36415; 74176; 80048; 81001; 85025; 87086; 96374; 96375; 99284; J1885; J2405; J7030

== ENCOUNTER 2024-12-18 08:15 | Outpatient (RCR) | payer BC, SELFPAY | END 2025-04-17 23:59 | disposition home or self-care (01) | PROVIDERS: PCP Family Medicine; Visit Provider Family Medicine | DX: M54.9 Dorsalgia, unspecified (principal); Z51.89 Encounter for other specified aftercare | CPT/HCPCS: 97110; 97140; 97162; 97530 ==

== ENCOUNTER 2025-01-01 08:36 | Outpatient (CLI) | payer BC, SELFPAY | END 2025-01-01 08:37 | disposition home or self-care (01) | LOC: NFLDREF 01-07 01:04 | PROVIDERS: PCP Family Medicine; Referring Provider Family Medicine; Visit Provider Family Medicine | DX: R53.83 Other fatigue (principal); E66.9 Obesity, unspecified; G47.00 Insomnia, unspecified; I10 Essential (primary) hypertension; R61 Generalized hyperhidrosis; R80.9 Proteinuria, unspecified; R07.89 Other chest pain | CPT/HCPCS: 80053; 82671; 83001; 83002; 83525; 84144; 84439; 84443; 84481 ==

== ENCOUNTER 2025-01-09 07:48 | Outpatient (CLI) | payer BC, SELFPAY | END 2025-01-09 07:49 | disposition home or self-care (01) | LOC: RAD 07:48 | PROVIDERS: PCP Family Medicine; Visit Provider Family Medicine | DX: R94.31 Abnormal electrocardiogram [ECG] [EKG] (principal); E66.9 Obesity, unspecified; G47.00 Insomnia, unspecified; I10 Essential (primary) hypertension; R61 Generalized hyperhidrosis | CPT/HCPCS: 93306 ==

== ENCOUNTER 2025-03-11 09:22 | Outpatient (CLI) | payer BC, SELFPAY ==
[2025-03-13 03:56] LABS: HPV Source Cervix; HPV, High Risk by TMA Not Detected
== END 2025-03-11 09:23 | disposition home or self-care (01) ==
PROVIDERS: PCP Family Medicine; Visit Provider Obstetrics & Gynecology
DX: Z12.4 Encounter for screening for malignant neoplasm of cervix (principal); Z11.51 Encounter for screening for human papillomavirus (HPV)
CPT/HCPCS: 87624; 87625; 88141; 88142

== ENCOUNTER 2025-03-19 08:22 | Outpatient (CLI) | payer BC, SELFPAY | END 2025-03-19 08:23 | disposition home or self-care (01) | LOC: LKVREF 08:23 | PROVIDERS: PCP Family Medicine; Visit Provider Family Medicine | DX: R79.89 Other specified abnormal findings of blood chemistry (principal); E16.8 Other specified disorders of pancreatic internal secretion; E66.9 Obesity, unspecified | CPT/HCPCS: 80053 ==

== ENCOUNTER 2025-06-09 10:25 | Outpatient (CLI) | payer BC, SELFPAY | END 2025-06-09 10:26 | disposition home or self-care (01) | PROVIDERS: PCP Family Medicine; Visit Provider Family Medicine | DX: R79.89 Other specified abnormal findings of blood chemistry (principal); I10 Essential (primary) hypertension | CPT/HCPCS: 80076; 82043; 82570 ==

== ENCOUNTER 2025-06-11 10:48 | Outpatient (CLI) | payer BC, SELFPAY ==
[2025-06-11 11:47] VITALS: BP 154/86; PULSE 92; RESP 18
--- NOTE | 2025-06-11 11:47 | W.PM.STED ---
Stress Test Note Date Date Seen: 06/11/25 Date of test: 06/11/25 Providers Primary care provider: Ashu Bush Stress test physician: Laura Silver Stress Test Note Stress test ordered: Exercise Stress Test Indication for test: Syncopal episode Stress test medicine: None Results discussion: Resting EKG: Sinus rhythm with rate of 86 beats per minute. Diffuse T-wave abnormality without ST segment changes. Resting blood pressure: 146/82 Stress test: Patient is consented on ordered stress test and agrees to proceed. Patient exercised on the treadmill following standard Alfredo protocol. She was able to exercise to 7 minutes 18 seconds, requesting to stop due to a meeting exercise capacity. This was equivalent to 8.7 Mets of activity. She obtained a maximum heart rate of 171 beats per minute which was 112% of a calculated target heart rate of 152. She had a rate pressure product of 28,728. Right at the end of the stress test, patient started to feel lightheaded and dizzy, no visual changes, no acute neurologic changes. Her blood pressure in recovery was 184/90 for. She did have a little substernal chest discomfort and nausea which resolved. Her T-waves did invert initially in recovery and then went back to baseline by the end of the recovery phase. There was no definitive EKG changes diagnostic of ischemia, no arrhythmia. Patient's symptoms had resolved at the termination of the stress test. Impression: Subjectively positive with symptoms of nausea, some chest discomfort and lightheadedness with negative EKG/objectively negative EKG changes, probable hypertensive response to exercise. Follow up suggested: Patient is discharged in stable condition. She states the just increased her hydrochlorothiazide yesterday, she has been withholding her Adderall due to blood pressure issues that have just recently escalated. We did briefly review consideration of secondary causes of hypertension and she will continue to work with her primary care provider on her blood pressure. We also did discuss consideration of doing the calcium CT score which she can do on her own through [facility]. She certainly can discuss this further with her primary care provider. If there is ongoing concern for ischemic disease, recommend patient see Cardiology or have further workup.
== END 2025-06-11 10:49 | disposition home or self-care (01) ==
LOC: STRESS 10:48
PROVIDERS: PCP Family Medicine; Referring Provider Family Medicine; Visit Provider Family Medicine
DX: R55 Syncope and collapse (principal); R94.31 Abnormal electrocardiogram [ECG] [EKG]; R07.9 Chest pain, unspecified; I10 Essential (primary) hypertension
CPT/HCPCS: 93016; 93017

== ENCOUNTER 2025-06-18 07:04 | Outpatient (CLI) | payer BC, SELFPAY ==
--- NOTE | 2025-06-18 07:15 | CRLHL7_ITS ---
For Patients: As a result of the Century Cures Act, medical imaging exams and procedure reports are released immediately into your electronic medical record. You may view this report before your referring provider. If you have questions, please contact your health care provider. Indication: Loss of consciousness. Technique: Multiplanar multisequence noncontrast MR images of the brain. Comparison: MRI brain 02/15/2021. Findings: The ventricles and sulci are within normal limits for patient age. No mass effect or midline shift. No parenchymal signal abnormalities No intracranial hemorrhage or pathologic extra-axial fluid collection. No diffusion restriction to suggest acute infarction. The major arterial flow voids of the skull base are preserved. Globes are symmetric. Minimal paranasal sinus mucosal thickening. Mastoid air cells are clear. Impression: Unremarkable noncontrast MRI of the brain. Dictated by Christophe Leon MD @ 06/18/2025 12:49:08 PM (Electronically Signed)
== END 2025-06-18 07:05 | disposition home or self-care (01) ==
LOC: MRI 07:04
PROVIDERS: PCP Family Medicine; Visit Provider Family Medicine
DX: R42 Dizziness and giddiness (principal); R40.20 Unspecified coma
CPT/HCPCS: 70551

== ENCOUNTER 2025-06-18 16:34 | Outpatient (CLI) | payer BC, SELFPAY | END 2025-06-18 16:35 | disposition home or self-care (01) | LOC: AMB 06-19 09:57 | PROVIDERS: PCP Family Medicine; Visit Provider Emergency Medicine Emergency Medical Services | DX: R07.89 Other chest pain (principal) | CPT/HCPCS: A0425; A0427 ==

== ENCOUNTER 2025-09-04 08:17 | Outpatient (CLI) | payer BC, SELFPAY | END 2025-09-04 08:18 | disposition home or self-care (01) | LOC: NFLDREF 09-07 16:03 | PROVIDERS: PCP Family Medicine; Referring Provider Family Medicine; Visit Provider Family Medicine | DX: I10 Essential (primary) hypertension (principal); E11.9 Type 2 diabetes mellitus without complications | CPT/HCPCS: 80053; 80061; 82043; 82570 ==